=== PATIENT | male | born 1995 | race Caucasian/White ===

== ENCOUNTER 2021-09-01 22:24 | Emergency (ER) | payer MEDICAID, SELFPAY ==
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
[2021-09-01 22:27] VITALS: BP 132/70; PULSE 100; RESP 19; TEMP 36.6; O2SAT 99; BMI 33.8
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
[2021-09-02] MEDS: Ibuprofen 600 MG TABLET PO (00:48)
[2021-09-02 00:54] VITALS: RESP 20
--- NOTE | 2021-09-02 00:55 | PC.NURSE ---
pt a&o, no sob or chest pain. pt able to move extremely and has positive cms. splint given and review of discharge instructions. Pt verbalized understanding.
== END 2021-09-02 01:16 | disposition home or self-care (01) ==
PROVIDERS: Emergency Provider Emergency Medicine Emergency Medical Services
DX: S63.601A Unspecified sprain of right thumb, initial encounter (principal); S60.221A Contusion of right hand, initial encounter; Y04.2XXA Assault by strike against or bumped into by another person, initial encounter; Y93.9 Activity, unspecified; Y92.9 Unspecified place or not applicable; Y99.9 Unspecified external cause status
CPT/HCPCS: 29125; 73120; 73140; 99283; 99284

== ENCOUNTER 2021-09-03 21:12 | Emergency (ER) | payer MEDICAID, SELFPAY ==
[2021-09-03 21:33] VITALS: BP 120/72; PULSE 96; RESP 18; TEMP 36.6; O2SAT 96; BMI 32.8
--- NOTE | 2021-09-03 21:40 | PC.NURSE ---
From [facility] angela Bass, Staff member is Rocael as 1:1 Staff member coming on overnight: Rere. Staff building construction supervisor: Javi [phone]
[2021-09-03 21:59] LABS: MANUAL DIFF FLAG NO
[2021-09-03 22:04] LABS: Appearance Urine CLEAR; Basophils Absolute Auto 0.1 X10*3/uL (0.0-0.2); Basophils Percent Auto 0.8 % (0-2); Color Urine YELLOW; Eosinophils Absolute Auto 0.2 X10*3/uL (0.0-0.4); Glucose Urine UA NEG (NEG); Hematocrit 38.9 % (42.0-52.0); Hemoglobin 13.2 g/dl (14.0-18.0); Imm Gran Abs Auto 0.07 X10*3/uL (0.00-0.03); Imm Gran Pct Auto 0.9 % (0.0-0.4); Leukocyte Esterase Urine NEG (NEG); Lymphocytes Percent Auto 26.2 % (20-40); Mean Corpuscular HGB Conc 33.9 g/dl (31.0-36.0); Mean Corpuscular Hemoglobin 31.4 pg (27.0-33.0); Mean Corpuscular Volume 92.4 fL (80.0-98.0); Mean Platelet Volume 8.9 fL (9.4-12.4); Monocytes Absolute Auto 0.8 X10*3/uL (0.1-1.2); Monocytes Percent Auto 10.5 % (2-11); Neutrophils Absolute Auto 4.5 x10*3/uL (2.0-8.3); Neutrophils Percent Auto 59.6 % (45-73); Nitrite Urine NEG (NEG); Platelet Count 289 X10*3/uL (160-400); Red Blood Count 4.21 X10*6/uL (4.60-5.80); Red Cell Distribution Width 12.4 % (11.0-16.0); Specific Gravity - Urine 1.025 (1.005-1.025); Urine Blood NEG (NEG); Urine Ketones 5 MG/DL (NEG); Urine Protein NEG (NEG-TRACE); White Blood Count 7.5 X10*3/uL (4.8-10.8)
[2021-09-03 22:25] LABS: COVID-19 Test Negative (Negative); IDNOW Serial# 16C4AD1C; IDNOW Serial# 9DB6401D; Influenza A Negative (Negative); Influenza B2 Negative (Negative)
[2021-09-03 22:26] LABS: Alanine Aminotransferase 21 U/L (0-40); Albumin Level 4.1 g/dL (3.5-5.0); Alkaline Phosphatase 48 U/L (39-117); Anion Gap 13 (12-20); Aspartate Amino Transferase 20 U/L (5-37); Bilirubin Direct 0.2 mg/dL (0.0-0.5); Bilirubin Total 0.3 mg/dL (0.0-1.0); Blood Urea Nitrogen 22 mg/dL (9-16); Calcium 9.6 mg/dL (8.4-10.2); Carbon Dioxide 25 mmol/L (22-29); Chloride 106 mmol/L (96-108); Creatinine Clr Calc Pharmacy 150.4; Estimated Glomerular Filt Rate > 60; Glucose Random 91 mg/dL (60-115); Lipase 51 U/L (8-78); Potassium 4.8 mmol/L (3.3-5.1); Sodium 139 mmol/L (135-145)
[2021-09-04] VITALS: RESP 16
--- NOTE | 2021-09-04 00:05 | ED_ITS ---
HPI - Abdominal Pain General Chief Complaint: Abdominal Pain Stated Complaint: abd pain ,diarrhea Time Seen by Provider: 09/03/21 22:57 Source: patient Mode of arrival: ambulatory Limitations: no limitations History of Present Illness HPI narrative: Patient comes from a halfway complaining of 2 weeks of diffuse abdominal cramping, nausea vomiting and diarrhea. Patient states that he has had diarrhea twice. Feeling nauseous at this time. Seems that [facility], states he had a CT scan done and per patient, he was told that everything was normal. Patient denies any URI or UTI symptoms. Patient denies blood in the stool or black stool, patient states that the diarrhea has been green. Related Data Previous Rx's Medication Instructions Recorded ibuprofen 600 mg tablet 600 mg PO Q6H PRN #30 tab 09/02/21 loperamide 2 mg tablet 2 mg PO Q6H PRN #14 tab 09/04/21 (Anti-Diarrheal (loperamide)) ondansetron HCl 4 mg tablet 4 mg PO Q6H PRN #14 tab 09/04/21 Allergies Allergy/AdvReac Type Severity Reaction Status Date / Time acetaminophen [From Vicodin] Allergy Stomach Verified 09/01/21 22:33 Upset almond Allergy Unknown Verified 09/01/21 22:33 coconut Allergy Unknown Verified 09/01/21 22:33 hydrocodone [From Vicodin] Allergy Stomach Verified 09/01/21 22:33 Upset Review of Systems Review of Systems Constitutional : No Weight loss, No Fever, No Chills, No Night Sweats, No Fatigue, No Malaise ENT/Mouth : No Hearing loss, No Ear Pain, No Nasal Congestion, No Sinus Pain, No Hoarseness, No sore throat, No Rhinorrhea, No Swallowing Difficulty Eyes: No Eye Pain, No Swelling, No Redness, No Foreign Body, No Discharge, No Vision Changes Cardiovascular : No Chest Pain, No SOB, No Dyspnea on Exertion, No Orthopnea, No Edema, No Palpitations Respiratory : No Cough, No Sputum, No Wheezing, No Smoke Exposure, No Dyspnea Gastrointestinal : Complaining of nausea, vomiting, 2 episodes of diarrhea No Constipation, abdominal cramping, worse and suprapubic and left lower quadrant, No Hematochezia, No Melena Genitourinary : no irregular bleeding, No Dysuria, No Urinary Frequency, No Hematuria, No Urinary Incontinence, No Urgency, No Flank Pain, No Urinary Flow Changes, No Hesitancy Musculoskeletal : No joint pain, No Myalgias, No Joint Swelling Skin : No Skin Lesions, No rash Neuro : No Weakness, No Numbness, No Paresthesias, No Loss of Consciousness, No Dizziness, No Headache Psych : No Anxiety/Panic, No Depression, No SI/HI/AH/VH, No Social Issues, Heme/Lymph: No Bruising, No Bleeding,No Lymphadenopathy Endocrine : No Polyuria, No Polydipsia, No Temperature Intolerance [facility] Past Medical History Medical History Schizoaffective disorder Social History Social History Patient Tobacco Use Status: Never used Tobacco Advance Directives: No Advance Directives Information Provided: No Physical Exam ED Vital Signs: Vital Signs - 24 hr 09/03/21 21:33 Temperature 98 F Pulse Rate 96 Respiratory Rate 18 Blood Pressure 120/72 Pulse Oximetry 96 BMI result Body Mass Index 32.8 Const Other: Appearance: Alert. Oriented X3. No acute distress. Eyes: Pupils equal, round and reactive to light. Ecchymosis at least 3 to 4-day-old around the right eye, moves eyes with normal range of motion, no nerve entrapment suspected ENT: Pharynx normal. Neck: Normal inspection. Neck supple. No lymph nodes noted. No crepitus CVS: Normal heart rate and rhythm. Pulses normal. Normal S1 and S2 Respiratory: No respiratory distress. Breath sounds normal. No Wheezing. No rales Abdomen: Soft , seems to have discomfort on palpation in suprapubic and right lower quadrant. Skin: Skin warm and dry. Normal skin color. Normal skin turgor. Extremities: No lower extremity edema. No Lacerations. No Rash, patient's right arm is in a splint Neuro: Oriented X 3. No motor deficit. No sensory deficit. Moving all extremities. No slurred speech. CN 2 through 12 grossly intact Psych: calm, cooperative, normal affect Course Course Course Narrative: Patient's white blood cell count within normal limits, no electrolyte abnormalities. Urinalysis is clean. Patient refuses CT scan. Patient was given 1 dose of loperamide and Zofran in the emergency room. Otherwise patient feels well, ready for discharge. MDM - Abdominal Pain Lab Data Result diagrams: 09/03/21 21:51 09/03/21 21:51 Labs: Lab Results 09/03/21 09/03/21 09/03/21 Range/Units 21:51 21:51 21:51 WBC 7.5 (4.8-10.8) X10*3/uL RBC 4.21 L (4.60-5.80) X10*6/uL Hgb 13.2 L (14.0-18.0) g/dl Hct 38.9 L (42.0-52.0) % MCV 92.4 (80.0-98.0) fL MCH 31.4 (27.0-33.0) pg MCHC 33.9 (31.0-36.0) g/dl RDW 12.4 (11.0-16.0) % Plt Count 289 (160-400) X10*3/uL MPV 8.9 L (9.4-12.4) fL Immature Gran % (Auto) 0.9 H (0.0-0.4) % Neut % (Auto) 59.6 (45-73) % Lymph % (Auto) 26.2 (20-40) % [place] % (Auto) 10.5 (2-11) % Eos % (Auto) 2.0 (0-4) % Baso % (Auto) 0.8 (0-2) % Lymph # (Auto) 2.0 (1.2-4.9) X10*3/uL [place] # (Auto) 0.8 (0.1-1.2) X10*3/uL Eos # (Auto) 0.2 (0.0-0.4) X10*3/uL Baso # (Auto) 0.1 (0.0-0.2) X10*3/uL Abs Immat Gran (auto) 0.07 H (0.00-0.03) X10*3/uL Absolute Neuts (auto) 4.5 (2.0-8.3) x10*3/uL Absolute Nucleated RBC 0.000 (0.0-0.012) X10*3/uL Nucleated RBC % (auto) 0.0 (0.0-0.2) /100WBC Sodium (135-145) mmol/L Potassium (3.3-5.1) mmol/L Chloride (96-108) mmol/L Carbon Dioxide (22-29) mmol/L Anion Gap (12-20) BUN (9-16) mg/dL Creatinine (0.5-1.4) mg/dL Estim Creat Clear Calc Estimated GFR Random Glucose (60-115) mg/dL Calcium (8.4-10.2) mg/dL Total Bilirubin (0.0-1.0) mg/dL Direct Bilirubin (0.0-0.5) mg/dL AST (5-37) U/L ALT (0-40) U/L Alkaline Phosphatase (39-117) U/L Total Protein (6.5-8.0) g/dL Albumin (3.5-5.0) g/dL Lipase (8-78) U/L Urine Color Urine Appearance Urine pH (5.0-8.0) Ur Specific [place] (1.005-1.025) Urine Protein (NEG-TRACE) MG/DL Urine Glucose (UA) (NEG) MG/DL Urine Ketones (NEG) MG/DL Urine Blood (NEG) Urine Nitrite (NEG) Ur Leukocyte Esterase (NEG) COVID-19 (MIGUEL ANGEL) Negative (Negative) COVID-19 Clin Com See Note Influenza Type A (PENG) Negative (Negative) Influenza Type B (PENG) Negative (Negative) Influenza A & B Note See Note 09/03/21 09/03/21 Range/Units 21:51 21:51 WBC (4.8-10.8) X10*3/uL RBC (4.60-5.80) X10*6/uL Hgb (14.0-18.0) g/dl Hct (42.0-52.0) % MCV (80.0-98.0) fL MCH (27.0-33.0) pg MCHC (31.0-36.0) g/dl RDW (11.0-16.0) % Plt Count (160-400) X10*3/uL MPV (9.4-12.4) fL Immature Gran % (Auto) (0.0-0.4) % Neut % (Auto) (45-73) % Lymph % (Auto) (20-40) % [place] % (Auto) (2-11) % Eos % (Auto) (0-4) % Baso % (Auto) (0-2) % Lymph # (Auto) (1.2-4.9) X10*3/uL [place] # (Auto) (0.1-1.2) X10*3/uL Eos # (Auto) (0.0-0.4) X10*3/uL Baso # (Auto) (0.0-0.2) X10*3/uL Abs Immat Gran (auto) (0.00-0.03) X10*3/uL Absolute Neuts (auto) (2.0-8.3) x10*3/uL Absolute Nucleated RBC (0.0-0.012) X10*3/uL Nucleated RBC % (auto) (0.0-0.2) /100WBC Sodium 139 (135-145) mmol/L Potassium 4.8 (3.3-5.1) mmol/L Chloride 106 (96-108) mmol/L Carbon Dioxide 25 (22-29) mmol/L Anion Gap 13 (12-20) BUN 22 H (9-16) mg/dL Creatinine 0.84 (0.5-1.4) mg/dL Estim Creat Clear Calc 150.4 Estimated GFR > 60 Random Glucose 91 (60-115) mg/dL Calcium 9.6 (8.4-10.2) mg/dL Total Bilirubin 0.3 (0.0-1.0) mg/dL Direct Bilirubin 0.2 (0.0-0.5) mg/dL AST 20 (5-37) U/L ALT 21 (0-40) U/L Alkaline Phosphatase 48 (39-117) U/L Total Protein 7.0 (6.5-8.0) g/dL Albumin 4.1 (3.5-5.0) g/dL Lipase 51 (8-78) U/L Urine Color YELLOW Urine Appearance CLEAR Urine pH 6.0 (5.0-8.0) Ur Specific [place] 1.025 (1.005-1.025) Urine Protein NEG (NEG-TRACE) MG/DL Urine Glucose (UA) NEG (NEG) MG/DL Urine Ketones 5 (NEG) MG/DL Urine Blood NEG (NEG) Urine Nitrite NEG (NEG) Ur Leukocyte Esterase NEG (NEG) COVID-19 (MIGUEL ANGEL) (Negative) COVID-19 Clin Com Influenza Type A (PENG) (Negative) Influenza Type B (PENG) (Negative) Influenza A & B Note Discharge Plan Discharge Clinical Impression: Nausea vomiting and diarrhea Patient Disposition: Home, Self-Care Instructions: Acute Nausea and Vomiting (ED), Acute Diarrhea (ED), Abdominal Pain (ED) Additional Instructions: Please stay well hydrated. Drink fluids with electrolytes such as Gatorade, Pedialyte or Powerade. Please follow-up with your primary care physician tomorrow. If you have any worsening or new symptoms, please return to the emergency room or call 911 Prescriptions: New loperamide [Anti-Diarrheal (loperamide)] 2 mg tablet 2 mg PO Q6H PRN (Reason: loose stool) Qty: 14 0RF ondansetron HCl 4 mg tablet 4 mg PO Q6H PRN (Reason: nausea and vomiting) Qty: 14 0RF No Action ibuprofen 600 mg tablet 600 mg PO Q6H PRN (Reason: pain) Qty: 30 0RF
[2021-09-04] MEDS: Ondansetron ODT 4 MG TAB.RAPDIS TRANSLINGU (00:20)
[2021-09-04] MEDS: Loperamide HCl 2 MG CAPSULE 4 MG PO (00:20)
== END 2021-09-04 00:24 | disposition home or self-care (01) ==
PROVIDERS: Emergency Provider Emergency Medicine
DX: R11.2 Nausea with vomiting, unspecified (principal); R19.7 Diarrhea, unspecified; Z20.822 Contact with and (suspected) exposure to COVID-19; Z79.899 Other long term (current) drug therapy
CPT/HCPCS: 36415; 80053; 81003; 82248; 83690; 85025; 87502; 87635; 99283; 99284

== ENCOUNTER 2021-11-27 13:42 | Emergency (ER) | payer OTHER, SELFPAY ==
--- NOTE | ~2021-11-27 | XR_ITS ---
EXAMINATION: XR CHEST CLINICAL INFORMATION: Chest pain COMPARISON: None TECHNIQUE: Frontal view of the chest was obtained. FINDINGS: No significant abnormality is noted involving the heart, lungs, mediastinum, bony thorax or soft tissues. XR/XR chest 1V IMPRESSION: Unremarkable examination.
--- NOTE | 2021-11-27 14:01 | ECG_ITS ---
Test Reason : cp Blood Pressure : / mmHG Vent. Rate : 107 BPM Atrial Rate : 107 BPM P-R Int : 130 ms QRS Dur : 080 ms QT Int : 334 ms P-R-T Axes : 023 028 011 degrees QTc Int : 445 ms Sinus tachycardia Cannot rule out Anterior infarct , age undetermined Abnormal ECG No previous ECGs available Referred By: Generic ED Physician Electronically Signed By:MANUEL JUDD MD
[2021-11-27 14:28] VITALS: BP 134/80; PULSE 100; RESP 18; TEMP 36.6; O2SAT 96; BMI 38.5
[2021-11-27 14:48] LABS: MANUAL DIFF FLAG NO
[2021-11-27 14:49] LABS: Basophils Absolute Auto 0.1 X10*3/uL (0.0-0.2); Eosinophils Absolute Auto 0.2 X10*3/uL (0.0-0.4); Eosinophils Percent Auto 2.8 % (0-4); Hematocrit 41.8 % (42.0-52.0); Hemoglobin 14.7 g/dl (14.0-18.0); Imm Gran Abs Auto 0.04 X10*3/uL (0.00-0.03); Imm Gran Pct Auto 0.7 % (0.0-0.4); Lymphocytes Absolute Auto 2.1 X10*3/uL (1.2-4.9); Lymphocytes Percent Auto 35.3 % (20-40); Mean Corpuscular HGB Conc 35.2 g/dl (31.0-36.0); Mean Corpuscular Hemoglobin 31.2 pg (27.0-33.0); Mean Corpuscular Volume 88.7 fL (80.0-98.0); Mean Platelet Volume 9.3 fL (9.4-12.4); Monocytes Absolute Auto 0.6 X10*3/uL (0.1-1.2); Neutrophils Percent Auto 50.2 % (45-73); Platelet Count 290 X10*3/uL (160-400); Red Blood Count 4.71 X10*6/uL (4.60-5.80); Red Cell Distribution Width 11.5 % (11.0-16.0)
[2021-11-27 15:14] LABS: Anion Gap 14 (12-20); Blood Urea Nitrogen 14 mg/dL (9-16); Calcium 9.2 mg/dL (8.4-10.2); Carbon Dioxide 25 mmol/L (22-29); Chloride 106 mmol/L (96-108); Creatinine Clr Calc Pharmacy 163.6; Estimated Glomerular Filt Rate > 60; Glucose Random 80 mg/dL (60-115); Potassium 4.7 mmol/L (3.3-5.1); Sodium 140 mmol/L (135-145)
[2021-11-27 15:22] LABS: Troponin-I High Sensitivity < 3.5 ng/L (<3.5-35.0)
--- NOTE | 2021-11-27 16:25 | ED.CHESTPAIN ---
HPI - Chest Pain General Chief Complaint: Chest Pain Stated Complaint: chest pain, numb feet Time Seen by Provider: 11/27/21 15:47 Source: patient Mode of arrival: ambulatory Limitations: no limitations History of Present Illness HPI narrative: 26-year-old male presents to ED for chest pain for 2 months and also numbness/tingling of lower extremities for couple of weeks. patient denies any pleurisy, leg swelling, calf pain, fever, chills, slurred speech, recent long travel, headache, dizziness, loss of vision, pleurisy, recent trauma, paralysis of extremities, estrogen hormonal use, or shortness/chest pain on exertion. patient states chest pain described as feeling nervous and tingling in feet when these episode occur. patient denies any URI symptoms or covid symptoms Related Data Previous Rx's Medication Instructions Recorded ibuprofen 600 mg tablet 600 mg PO Q6H PRN pain #30 tabs 09/02/21 loperamide 2 mg tablet 2 mg PO Q6H PRN loose stool #14 09/04/21 (Anti-Diarrheal (loperamide)) tabs ondansetron HCl 4 mg tablet 4 mg PO Q6H PRN nausea and 09/04/21 vomiting #14 tabs Allergies Allergy/AdvReac Type Severity Reaction Status Date / Time acetaminophen [From Vicodin] Allergy Stomach Verified 09/01/21 22:33 Upset almond Allergy Unknown Verified 09/01/21 22:33 coconut Allergy Unknown Verified 09/01/21 22:33 hydrocodone [From Vicodin] Allergy Stomach Verified 09/01/21 22:33 Upset Review of Systems Review of Systems: atypical chest pain Yes all other systems are reviewed and are negative [facility]LY [facility] Past Medical History Medical History Schizoaffective disorder Social History Social History Patient Tobacco Use Status: Never used Tobacco Advance Directives: No Advance Directives Information Provided: No Physical Exam Vital Signs: Vital Signs: Last Vital Signs Temp 97.9 F 11/27/21 14:28 Pulse 100 11/27/21 14:28 Resp 18 11/27/21 14:28 BP 134/80 11/27/21 14:28 Pulse Ox 96 11/27/21 14:28 O2 Del Method 11/27/21 14:28 BMI result Body Mass Index 38.5 Const: General: cooperative, healthy appearing, comfortable, no acute distress, well developed, alert, awake and Physically active Orientation/consciousness: patient oriented x3 HEENT: Head: Yes normal to inspection, Yes No palpable skull fracture present, Yes normocephalic, Yes atraumatic and No abrasion Eyes: General: appearance normal, both eyes and all related structures Neck: Neck: Yes normal visual inspection, Yes full ROM, Yes no lymphadenopathy, Yes no meningeal signs, Yes trachea midline, Yes supple, No anterior neck swelling and No tender Chest: Chest palpation & inspection: normal inspection of the chest and normal palpation of entire chest wall Resp: Effort & Inspection: normal respiratory effort and able to speak in complete sentences Auscultation: clear to auscultation bilaterally Cardio: Jugular venous distension: no JVD Heart sounds: S1 normal heart sound present and S2 normal heart sound present GI: Inspection: Yes normal to inspection and No abdominal wall ecchymosis Palpation (GI): Soft to palpation, not firm, nontender, no guarding and not rigid : General: No CVA tenderness and Yes no CVA tenderness Back/Spine/Pelvis: Back: no CVA tenderness, No CVA tenderness and No back tenderness Skin: General skin exam: no rashes or lesions noted and elasticity normal Neuro: Other: Negative slurred speech. Negative facial droop. Negative pronator drift. All extremities equal strength 5+. [id number] rapid hand movement sac. Negative Romberg. Negative nystagmus. NIH 0 General: patient oriented x3, gait normal, tone normal and no meningeal signs Cranial nerves: Yes CN's II-XII intact bilaterally Extrem: Other: Lower extremities negative for any swelling, pitting edema, calf tenderness. Lower extremity motor/nerve/vascular is intact. Lower extremity deep acute reflexes intact. General: Yes normal to inspection and Yes full ROM Psych: Appearance: grossly normal, well kempt and not disheveled Course Course Course Narrative: Atypical chest pain. Reevaluation(s) Reevaluation #1: EKG negative STEMI. Chest x-ray normal. Troponin negative. Not suspecting PE. Patient denies any pleurisy, recent long travel, recent surgery, leg swelling, calf pain, coughing up blood, or syncope. Patient informed to follow-up primary care provider. Negative for any neuro deficits. No need for head CT. Time: 16:38 MDM - Chest Pain MDM Narrative Medical decision making narrative: Atypical chest pain Lab Data Result diagrams: 11/27/21 14:39 11/27/21 14:39 Labs: Lab Results 11/27/21 11/27/21 11/27/21 Range/Units 14:39 14:39 14:39 WBC 6.0 (4.8-10.8) X10*3/uL RBC 4.71 (4.60-5.80) X10*6/uL Hgb 14.7 (14.0-18.0) g/dl Hct 41.8 L (42.0-52.0) % MCV 88.7 (80.0-98.0) fL MCH 31.2 (27.0-33.0) pg MCHC 35.2 (31.0-36.0) g/dl RDW 11.5 (11.0-16.0) % Plt Count 290 (160-400) X10*3/uL MPV 9.3 L (9.4-12.4) fL Immature Gran % (Auto) 0.7 H (0.0-0.4) % Neut % (Auto) 50.2 (45-73) % Lymph % (Auto) 35.3 (20-40) % [place] % (Auto) 10.0 (2-11) % Eos % (Auto) 2.8 (0-4) % Baso % (Auto) 1.0 (0-2) % Lymph # (Auto) 2.1 (1.2-4.9) X10*3/uL [place] # (Auto) 0.6 (0.1-1.2) X10*3/uL Eos # (Auto) 0.2 (0.0-0.4) X10*3/uL Baso # (Auto) 0.1 (0.0-0.2) X10*3/uL Abs Immat Gran (auto) 0.04 H (0.00-0.03) X10*3/uL Absolute Neuts (auto) 3.0 (2.0-8.3) x10*3/uL Absolute Nucleated RBC 0.000 (0.0-0.012) X10*3/uL Nucleated RBC % (auto) 0.0 (0.0-0.2) /100WBC Sodium 140 (135-145) mmol/L Potassium 4.7 (3.3-5.1) mmol/L Chloride 106 (96-108) mmol/L Carbon Dioxide 25 (22-29) mmol/L Anion Gap 14 (12-20) BUN 14 (9-16) mg/dL Creatinine 0.83 (0.5-1.4) mg/dL Estim Creat Clear Calc 163.6 Estimated GFR > 60 Random Glucose 80 (60-115) mg/dL Calcium 9.2 (8.4-10.2) mg/dL Troponin I High Sens < 3.5 (<3.5-35.0) ng/L ECG Data ECG #1: Interpretation: Sinus bradycardia. Ventricular rate 107. Pr interval 130. QRS 80. QTC 445. Negative STEMI Discharge Plan Discharge Clinical Impression: Atypical chest pain, Paresthesia Patient Disposition: Home, Self-Care Instructions: Chest Pain (DC), Paresthesia (ED) Additional Instructions: Please follow-up with primary care provider. Call your primary care office tomorrow for early appointment. Return to the ED immediately for worsening chest pain, leg swelling, calf pain, chest pain on inspiration, shortness of breath on exertion, dizziness, weakness, facial droop, slurred speech, headache, dizziness, paralysis of extremities, loss of vision, coughing up blood, or any other concerning symptoms. Your EKG and blood work came back negative for heart attack. Your blood cell count came back normal. Your electrolytes and kidney function came back normal. Chest x-ray came back normal. Prescriptions: No Action loperamide [Anti-Diarrheal (loperamide)] 2 mg tablet 2 mg PO Q6H PRN (Reason: loose stool) Qty: 14 0RF ondansetron HCl 4 mg tablet 4 mg PO Q6H PRN (Reason: nausea and vomiting) Qty: 14 0RF ibuprofen 600 mg tablet 600 mg PO Q6H PRN (Reason: pain) Qty: 30 0RF Referrals: Bassem Mariscal PA-C [Primary Care Provider] - (Atypical chest pain. Paresthesia) Interventions: ED Discharge Assessment Last Done: 11/27/21 17:00 Discharge Date/Time: 11/27/21 17:01 Print Language: Fijian
== END 2021-11-27 17:01 | disposition home or self-care (01) ==
PROVIDERS: Emergency Provider Emergency Medicine; PCP Physician Assistant
DX: R07.89 Other chest pain (principal); R20.2 Paresthesia of skin; R20.0 Anesthesia of skin; Z79.899 Other long term (current) drug therapy
CPT/HCPCS: 36415; 71045; 80048; 84484; 85025; 93005; 99284

== ENCOUNTER 2022-01-21 09:55 | Outpatient (REF) | payer OTHER, SELFPAY ==
[2022-01-21 10:55] LABS: Hematocrit 43.8 % (42.0-52.0); Hemoglobin 14.9 g/dl (14.0-18.0); Mean Corpuscular Hemoglobin 29.9 pg (27.0-33.0); Mean Platelet Volume 9.5 fL (9.4-12.4); Platelet Count 295 X10*3/uL (160-400); Red Blood Count 4.98 X10*6/uL (4.60-5.80)
[2022-01-21 11:08] LABS: Alanine Aminotransferase 71 U/L (0-40); Albumin Level 4.2 g/dL (3.5-5.0); Alkaline Phosphatase 54 U/L (39-117); Anion Gap 16 (12-20); Aspartate Amino Transferase 37 U/L (5-37); Bilirubin Total 0.6 mg/dL (0.0-1.0); Blood Urea Nitrogen 14 mg/dL (9-16); Carbon Dioxide 25 mmol/L (22-29); Chloride 104 mmol/L (96-108); Estimated Glomerular Filt Rate > 60; Glucose Fasting 77 mg/dL (60-99); Potassium 4.8 mmol/L (3.3-5.1); Sodium 140 mmol/L (135-145); Total Protein 6.8 g/dL (6.5-8.0)
[2022-01-21 11:30] LABS: TSH reflex Free T4 2.92 uIU/mL (0.32-4.0)
== END 2022-01-21 09:56 | disposition home or self-care (01) ==
LOC: HO.LAB 09:55
PROVIDERS: PCP Physician Assistant; Visit Provider Physician Assistant
DX: Z13.1 Encounter for screening for diabetes mellitus (principal); E66.09 Other obesity due to excess calories; Z68.39 Body mass index [BMI] 39.0-39.9, adult
CPT/HCPCS: 36415; 80053; 84443; 85027

== ENCOUNTER 2022-03-06 10:16 | Outpatient (REF) | payer OTHER, SELFPAY ==
[2022-03-23 12:49] LABS: Rast Allergen SEE COMMENTS
== END 2022-03-06 10:17 | disposition home or self-care (01) ==
LOC: HO.LAB 10:16
PROVIDERS: PCP Physician Assistant; Visit Provider Physician Assistant
DX: T78.40XA Allergy, unspecified, initial encounter (principal)
CPT/HCPCS: 36415; 82785; 86003

== ENCOUNTER 2022-09-24 10:38 | Outpatient (REF) | payer OTHER, SELFPAY ==
[2022-09-24 13:27] LABS: Alanine Aminotransferase 46 U/L (0-40); Albumin Level 3.9 g/dL (3.5-5.0); Alkaline Phosphatase 57 U/L (39-117); Aspartate Amino Transferase 33 U/L (5-37); Bilirubin Direct 0.2 mg/dL (0.0-0.5); Bilirubin Total 0.6 mg/dL (0.0-1.0); Total Protein 6.7 g/dL (6.5-8.0)
== END 2022-09-24 10:39 | disposition home or self-care (01) ==
LOC: HO.LAB 10:38
PROVIDERS: PCP Physician Assistant; Visit Provider Physician Assistant
DX: B35.4 Tinea corporis (principal)
CPT/HCPCS: 36415; 80076

== ENCOUNTER 2022-09-25 09:46 | Outpatient (REF) | payer OTHER, SELFPAY ==
[2022-09-25 11:23] LABS: Hematocrit 47.4 % (42.0-52.0); Mean Corpuscular HGB Conc 33.8 g/dl (31.0-36.0); Mean Corpuscular Hemoglobin 30.3 pg (27.0-33.0); Mean Corpuscular Volume 89.8 fL (80.0-98.0); Mean Platelet Volume 9.5 fL (9.4-12.4); Platelet Count 242 X10*3/uL (160-400); Red Blood Count 5.28 X10*6/uL (4.60-5.80); Red Cell Distribution Width 12.4 % (11.0-16.0); White Blood Count 6.1 X10*3/uL (4.8-10.8)
[2022-09-25 12:00] LABS: Alanine Aminotransferase 52 U/L (0-40); Albumin Level 4.1 g/dL (3.5-5.0); Alkaline Phosphatase 57 U/L (39-117); Anion Gap 12 (12-20); Aspartate Amino Transferase 37 U/L (5-37); Bilirubin Total 0.8 mg/dL (0.0-1.0); Blood Urea Nitrogen 9 mg/dL (9-16); Calcium 9.5 mg/dL (8.4-10.2); Carbon Dioxide 26 mmol/L (22-29); Chloride 105 mmol/L (96-108); Estimated Glomerular Filt Rate > 60; Glucose Fasting 72 mg/dL (60-99); Potassium 4.9 mmol/L (3.3-5.1); Sodium 138 mmol/L (135-145)
== END 2022-09-25 09:47 | disposition home or self-care (01) ==
LOC: HO.LAB 09:46
PROVIDERS: PCP Physician Assistant; Visit Provider Physician Assistant
DX: Z13.1 Encounter for screening for diabetes mellitus (principal)
CPT/HCPCS: 36415; 80053; 85027

== ENCOUNTER → 2022-10-07 10:00 | Outpatient (BNVA) | payer OTHER, SELFPAY | PROVIDERS: PCP Physician Assistant; Visit Provider Dietitian, Registered | DX: E66.09 Other obesity due to excess calories (principal); Z68.38 Body mass index [BMI] 38.0-38.9, adult | CPT/HCPCS: 97802 ==

== ENCOUNTER 2022-10-21 20:16 | Emergency (ER) | payer OTHER, SELFPAY ==
[2022-10-21 20:32] VITALS: BP 144/90; PULSE 84; O2SAT 93; BMI 36.6
[2022-10-21 20:55] VITALS: BP 125/70; PULSE 78; RESP 20; TEMP 36.6; O2SAT 96
--- NOTE | 2022-10-21 21:15 | PC.NURSE ---
reports being up to date with tetanus shot-- last given 2 years ago.
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
--- NOTE | 2022-10-21 21:31 | MHC.EDTECH ---
Call out to [facility] for bls transport back to [place], [address]
== END 2022-10-21 22:01 | disposition home or self-care (01) ==
PROVIDERS: Emergency Provider Emergency Medicine; PCP Physician Assistant
DX: S01.112A Laceration without foreign body of left eyelid and periocular area, initial encounter (principal); Z79.899 Other long term (current) drug therapy; Y04.2XXA Assault by strike against or bumped into by another person, initial encounter; Y93.9 Activity, unspecified; Y92.9 Unspecified place or not applicable; Y99.9 Unspecified external cause status; F17.200 Nicotine dependence, unspecified, uncomplicated; Z71.6 Tobacco abuse counseling
CPT/HCPCS: 12011; 99283; 99284

== ENCOUNTER 2022-11-18 10:23 | Outpatient (AMB) | payer OTHER, SELFPAY ==
--- NOTE | 2022-11-18 10:33 | A.OFFPC_ITS ---
Vital Signs 11/18/22 10:34 Height 5 ft 7 in Weight 243 lb BMI 38.1 BP 118/70 Blood Pressure Location Lt brachial Position Sitting Intake Visit Reasons: F/U for stiches removal Intake Note: Patient here for a follow up on stitch removal Night Custodian Required: No Accompanied by: staff Allergies acetaminophen [From Vicodin] Allergy (Verified 11/18/22 10:52) Stomach Upset almond Allergy (Verified 11/18/22 10:52) Unknown coconut Allergy (Verified 11/18/22 10:52) Unknown hydrocodone [From Vicodin] Allergy (Verified 11/18/22 10:52) Stomach Upset Medication List - Last Reconciled 11/18/22 by Kasia Mustafa MD albuterol sulfate 90 mcg/actuation 2 puffs inhalation Q4H 30 days benztropine 1 mg PO BID cetirizine 10 mg PO DAILY 90 days diphenhydramine HCl (Banophen) mg PO divalproex 1,000 mg PO BID docusate sodium (Colace) 100 mg PO DAILY PRN 30 days epinephrine 0.3 mg (0.3 mL) IM ONCE PRN 30 days haloperidol 0 mg PO haloperidol 2.5 mg PO BID haloperidol decanoate mg IM ibuprofen 600 mg PO TID PRN 10 days lisdexamfetamine (Vyvanse) 50 mg PO DAILY loperamide (Anti-Diarrheal (loperamide)) 2 mg PO Q6H PRN omeprazole 40 mg PO DAILY 90 days ondansetron HCl 4 mg PO Q8H PRN 30 days propranolol 20 mg PO TID syringe with needle (BD Luer-Georgi Syringe) As directed trazodone 75 mg PO BEDTIME PRN Tobacco use date assessed: 07/22/22 Dental Screening Dental Screen Date: 11/18/22 Did you have a dental visit in the last 12 months?: Yes Did you have a dental problem in the last 6 months where you did not have access to dental care?: No Was dental information given to patient?: Patient has dentist HPI HPI Comments History of Present Illness Details This is a 27-year-old male with schizoaffective disorder, allergies and GERD that comes today accompanied by staff member complaining of thoracic spine pain that has been present for about 5 months. He denies any previous trauma. No associated symptoms. No aggravating or alleviating symptoms has been identified. I will order x-ray. His schizoaffective disorder is follow by Psychiatry. Allergies are well controlled with antihistamines as needed. GERD stable with omeprazole as needed. Denies any chest pain or shortness of breath. He had 2-3 sutures a 10/21/2022 at ER and had the removed 2 weeks later at urgent care. [facility] Medical History (Updated 11/18/22 @ 11:00 by Kasia Mustafa MD) ADHD (attention deficit hyperactivity disorder) PTSD (post-traumatic stress disorder) Schizoaffective disorder Surgical History H/O hand surgery Social History Housing: Other Alcohol intake: never Patient Tobacco Use Status: Current everyday Tobacco user Tobacco use type: Cigarette Cigarette Packs Per Day: 1 Cigarettes Per Day: 20 e-Cigarette/Vaping Use: Former Use Second Hand Smoke Exposure: Yes service: No Current occupational status: disabled Cognitive needs: No Hearing needs: No Vision needs: Yes (glasses) Questionnaire Thrive Questionnaire Date Thrive assessed: 07/22/22 WILLIAM-7 AMB Questionnaire WILLIAM-7 Date WILLIAM - 7 assessed: 07/22/22 Source: Developed by Drs. Jp Gonzalez, Mary Marroquin, Lj Parham and colleagues, with an educational nadine from [employer]. Review of Systems Const All systems reviewed & are unremarkable except as noted in HPI and below Eyes Reports no additional complaints, Denies change in vision and Denies other visual disturbances Card Denies chest pain at rest, Denies chest pain with activity, Denies edema, Denies irregular heart rhythm, Denies claudication, Denies dyspnea, Denies dyspnea on exertion, Denies orthopnea, Denies paroxysmal nocturnal dyspnea and Denies slow heart rate Resp Denies cough, Denies dyspnea and Denies dyspnea on exertion GI Denies abdominal pain, Denies change in bowel habits, Denies excessive flatus, Denies nausea and Denies vomiting Denies urinary hesitancy, Denies urinary incontinence and Denies urinary urgency Musc Denies abnormal gait, Denies atrophy, Denies deformity and Denies limited range of motion Skin/Breast Denies bleeding lesions, Denies changing lesions and Denies rash Neuro Denies abnormal gait and Denies lack of coordination Physical exam (Primary Care) Vital Signs: Last Vital Signs BP 118/70 11/18/22 10:34 BMI result Body Mass Index 38.1 Tobacco/Smoking Status: Tobacco use Status Tobacco use date assessed 07/22/22 11/18/22 10:43 Patient Tobacco Use Status Current everyday Tobacco 11/18/22 10:43 Tobacco use type Cigarette 11/18/22 10:43 e-Cigarette/Vaping Use Former Use 11/18/22 10:43 Thrive Assessment: Date of Thrive Assessment Date Thrive assessed 07/22/22 11/18/22 10:43 Eyes General: appearance normal, both eyes and all related structures Eyelids: Yes eyelids normal Conjunctivae: conjunctivae normal Neck Neck: Yes normal visual inspection and Yes supple Resp Effort & Inspection: normal respiratory effort Auscultation: clear to auscultation bilaterally Cardio Jugular venous distension: no JVD Rate: regular rate Rhythm: regular rhythm Heart sounds: S1 normal heart sound present and S2 normal heart sound present Extrem General: Yes full ROM Assessment and Plan Assessment & Plan (1) Thoracic spine pain: Code(s): M54.6 - Pain in thoracic spine Plan: X-ray ordered (2) GERD (gastroesophageal reflux disease): Code(s): K21.9 - Gastro-esophageal reflux disease without esophagitis Qualifiers: Esophagitis presence: without esophagitis Qualified Code(s): K21.9 - Gastro-esophageal reflux disease without esophagitis Plan: Continue PPIs (3) Schizoaffective disorder: Code(s): F25.9 - Schizoaffective disorder, unspecified Qualifiers: Schizoaffective disorder type: bipolar Qualified Code(s): F25.0 - Schizoaffective disorder, bipolar type Plan: Continue divalproex. Follow-up with psychiatry. (4) Allergies: Code(s): T78.40XA - Allergy, unspecified, initial encounter Qualifiers: Encounter type: subsequent encounter Qualified Code(s): T78.40XD - Allergy, unspecified, subsequent encounter Plan: Continue antihistamines as needed. Orders: Orders XR thoracic spine 2V Today M54.6 - Pain in thoracic spine Coding Level of Care Code Est Pt Level 4 (28835) Diagnoses Thoracic spine pain M54.6 GERD (gastroesophageal reflux disease) K21.9 Esophagitis presence: without esophagitis Schizoaffective disorder F25.0 Schizoaffective disorder type: bipolar Allergies T78.40XD Encounter type: subsequent encounter Time Spent (min) 21
[2022-11-18 10:34] VITALS: BP 118/70; BMI 38.1
== END 2022-11-18 11:01 | disposition home or self-care (01) ==
PROVIDERS: PCP Physician Assistant; Visit Provider Internal Medicine
DX: M54.6 Pain in thoracic spine (principal); K21.9 Gastro-esophageal reflux disease without esophagitis; F25.0 Schizoaffective disorder, bipolar type; T78.40XD Allergy, unspecified, subsequent encounter
CPT/HCPCS: 99214

== ENCOUNTER 2022-11-27 10:26 | Outpatient (REF) | payer OTHER, SELFPAY ==
--- NOTE | ~2022-11-27 | XR_ITS ---
EXAMINATION: XR THORACOLUMBAR SPINE CLINICAL INFORMATION: Pain in thoracic spine COMPARISON: None available. TECHNIQUE: AP, lateral and swimmer's views obtained of the thoracic spine. FINDINGS: The vertebral alignment is normal. No intrinsic bony abnormality. The disc heights are well maintained. The endplates and posterior elements are normal. No fracture or subluxation. The surrounding prevertebral soft tissues are unremarkable. XR/XR thoracic spine 2V IMPRESSION: No compression fractures or subluxations are identified. The disc spaces are preserved. No endplate changes are seen. The prevertebral soft tissues are normal.
== END 2022-11-27 10:27 | disposition home or self-care (01) ==
LOC: HO.XRAY 10:26
PROVIDERS: PCP Internal Medicine; Visit Provider Internal Medicine
DX: M54.6 Pain in thoracic spine (principal)
CPT/HCPCS: 72070

== ENCOUNTER 2022-12-11 15:10 | Outpatient (AMB) | payer OTHER, SELFPAY ==
[2022-12-11 15:14] VITALS: BP 110/80; PULSE 83; O2SAT 96; BMI 38.0
--- NOTE | 2022-12-11 15:14 | MHC.PC.OV ---
Vital Signs 12/11/22 15:14 Height 5 ft 7 in Weight 242 lb 8 oz BMI 38.0 BP 110/80 Blood Pressure Location Lt brachial Position Sitting Pulse 83 Pulse Source Pulse Oximeter Pulse Oximetry (%) 96 Oxygen Delivery Method Room Air Intake Visit Reasons: abdominal pain Allergies acetaminophen [From Vicodin] Allergy (Verified 12/11/22 15:25) Stomach Upset almond Allergy (Verified 12/11/22 15:25) Unknown coconut Allergy (Verified 12/11/22 15:25) Unknown hydrocodone [From Vicodin] Allergy (Verified 12/11/22 15:25) Stomach Upset Medication List - Last Reconciled 12/11/22 by Bassem Mariscal PA-C albuterol sulfate 90 mcg/actuation 2 puffs inhalation Q4H 30 days benztropine 1 mg PO BID cetirizine 10 mg PO DAILY 90 days diphenhydramine HCl (Banophen) mg PO divalproex 1,000 mg PO BID docusate sodium (Colace) 100 mg PO DAILY PRN 30 days epinephrine 0.3 mg (0.3 mL) IM ONCE PRN 30 days haloperidol decanoate mg IM ibuprofen 600 mg PO TID PRN 10 days lisdexamfetamine (Vyvanse) 50 mg PO DAILY loperamide (Anti-Diarrheal (loperamide)) 2 mg PO Q6H PRN omeprazole 40 mg PO DAILY 90 days ondansetron HCl 4 mg PO Q8H PRN 30 days propranolol 20 mg PO TID syringe with needle (BD Luer-Georgi Syringe) As directed trazodone 75 mg PO BEDTIME PRN Tobacco use date assessed: 12/11/22 Dental Screening Dental Screen Date: 12/11/22 Did you have a dental visit in the last 12 months?: Yes Did you have a dental problem in the last 6 months where you did not have access to dental care?: No Was dental information given to patient?: Patient has dentist HPI abdominal pain HPI Details Patient is a 27-year-old male here today for a problem visit. Patient's past medical history significant for schizoaffective disorder, obesity, tobacco dependency, generalized anxiety disorder.. Reports having stomach pain over the last several weeks since having COVID , reports he feels he needs to vomit after he eats. He does use antinausea medication and omeprazole 40 mg though have not been helping his stomach pain. Also reports having thoracic and lower back pain over the last weeks. Had gotten x-ray of his thoracic spine which was unremarkable. He is asking for script for a lumbar support brace. [facility] Medical History ADHD (attention deficit hyperactivity disorder) PTSD (post-traumatic stress disorder) Schizoaffective disorder Surgical History H/O hand surgery Social History Housing: Other Alcohol intake: never Patient Tobacco Use Status: Current everyday Tobacco user Tobacco use type: Cigarette Cigarette Packs Per Day: 1 Cigarettes Per Day: 20 e-Cigarette/Vaping Use: Former Use Second Hand Smoke Exposure: Yes service: No Current occupational status: disabled Cognitive needs: No Hearing needs: No Vision needs: Yes (glasses) Questionnaire PHQ-9 Over the last 2 weeks, how often have you been bothered by any of the following problems? 1. Little interest or pleasure in doing things: several days 2. Feeling down, depressed, or hopeless: several days 3. Trouble falling or staying asleep, or sleeping too much: several days 4. Feeling tired or having little energy: not at all 5. Poor appetite or overeating: several days 6. Feeling bad about yourself - or that you are a failure or have let yourself or your family down: several days 7. Trouble concentrating on things, such as reading the newspaper or watching television: not at all 8. Moving or speaking so slowly that other people could have noticed. Or the opposite - being so fidgety or restless that you have been moving around a lot more than usual: not at all 9. Thoughts that you would be better off or of hurting yourself in some way: not at all Total score: 5 Depression Screening Interpretation: Negative 63951 - PHQ-9 Billing: Yes Source: Developed by Drs. Jp Gonzalez, Mary Marroquin, Lj Parham and colleagues, with an educational nadine from [employer]. Thrive Questionnaire Date Thrive assessed: 07/22/22 I am a: Patient What is your living situation today?: I have a steady place to live Within the past 12 months, did the food you bought not last and you didn't have the money to get more?: Never true Within the past 12 months, did you worry whether your food would run out before you got money to buy more?: Never true Do you have trouble paying for medicines?: No Do you have trouble getting transportation to medical appointments?: No Do you have trouble paying your heating and electricity bill?: No Do you have trouble taking care of your child, family member or friend?: No Do you have trouble with day-to-day activities such as bathing, preparing meals, shopping, managing finances, etc.?: No Are you currently unemployed and looking for a job?: No Are you interested in more education?: No Currently or been in a relationship where the following occur: no concerns reported AUDIT C Alcohol Use Questionnaire (AUDIT-C) 1. How often do you have a drink containing alcohol?: Never 3. How often do you have six or more drinks on one occasion?: Never Total Score: 0 Score Reviewed/Action Taken: No WILLIAM-7 AMB Questionnaire WILLIAM-7 Date WILLIAM - 7 assessed: 07/22/22 Feeling nervous, anxious, or on edge: 0 = Not at all Not being able to stop or control worryin = Not at all Worrying too much about different things: 0 = Not at all Trouble relaxin = Not at all Being so restless that it is hard to sit still: 0 = Not at all Becoming easily annoyed or irritable: 0 = Not at all Feeling afraid as if something awful might happen: 0 = Not at all Total WILLIAM-7 score (0-4 normal; 5-9 mild; 10-14 moderate; 15-21 severe): 0 Source: Developed by Drs. Jp Gonzalez, Mary Marroquin, Lj Parham and colleagues, with an educational nadine from [employer]. WILLIAM-7 Assessment Billing WILLIAM-7 Assessment Tool: WILLIAM-7 Assessment 45303 Review of Systems Const Denies headache(s) Eyes Denies loss of vision ENT Denies vertigo, Denies dizziness, Denies headache(s) and Denies sore throat Card Denies chest pain, Denies leg edema and Denies lightheadedness Resp Denies cough, Denies hemoptysis and Denies wheezing GI Reports abdominal pain, Denies melena, Denies constipation, Denies diarrhea and Reports vomiting Denies dysuria, Denies urinary frequency and Denies urinary urgency Musc Denies arthralgias, Denies joint swelling, Denies numbness and Denies tingling Neuro Denies Abnormal speech present, Denies behavioral changes, Denies vertigo, Denies dizziness, Denies headache(s), Denies loss of vision, Denies memory loss, Denies numbness and Denies tingling Psych Denies anxiety, Denies behavioral changes, Denies depression, Denies memory loss and Denies panic attacks Neil/Lymph Denies easy bleeding and Denies easy bruising Aller/Immun Denies wheezing Physical exam (Primary Care) Vital Signs: Last Vital Signs Pulse 83 12/11/22 15:14 BP 110/80 12/11/22 15:14 Pulse Ox 96 12/11/22 15:14 Oxygen Delivery Method Room Air 12/11/22 15:14 BMI result Body Mass Index 38.0 Tobacco/Smoking Status: Tobacco use Status Tobacco use date assessed 12/11/22 12/11/22 15:21 Patient Tobacco Use Status Current everyday Tobacco 12/11/22 15:21 Tobacco use type Cigarette 12/11/22 15:21 e-Cigarette/Vaping Use Former Use 12/11/22 15:21 PHQ-9: PHQ-9 Score PHQ-9: Total score 5 12/11/22 15:26 Depression Screening Interpretation: Negative Thrive Assessment: Date of Thrive Assessment Date Thrive assessed 07/22/22 12/11/22 15:21 Currently or been in a relationship where the following occur: no concerns reported Const General: healthy appearing, no acute distress, alert and awake Nutritional Appearance: well nourished Orientation/consciousness: oriented to person, oriented to place and oriented to time HENMT Ears: TM's normal bilaterally General nose exam: Normal nasal mucous membranes and turbinates present Eyes Conjunctivae: conjunctivae normal Sclerae: sclerae normal Pupils: Equal, round and reactive pupils present Neck Neck: Yes no lymphadenopathy and Yes no JVD Thyroid: Thyroid normal Carotids: no bruits Resp Effort & Inspection: normal respiratory effort and not tachypneic Auscultation: no crackles, no rales, no rhonchi and no wheezes Cardio Rate: regular rate Rhythm: regular rhythm Heart sounds: no murmurs and normal S1 and S2 GI Palpation (GI): Soft to palpation, Tenderness to palpation present (GI), no hepatomegaly and no splenomegaly Auscultation: normal bowel sounds Skin General skin exam: no rashes or lesions noted and dry skin Neuro General: oriented to person, oriented to place and oriented to time Cranial nerves: Yes Equal, round and reactive pupils present Speech: No Abnormal speech present Gait exam (Neuro): Normal gait present Motor exam (neuro): no tremor noted Extrem Right upper extremity: full ROM Left upper extremity: full ROM Right lower extremity: full ROM; no edema Left lower extremity: full ROM; no edema Psych Mental Status: mental status grossly normal Speech and movement: Normal speech and movement present Affect: normal affect Attitude: cooperative Thought process: Normal thought process present Assessment and Plan Assessment & Plan (1) Lumbar spine pain: Code(s): M54.50 - Low back pain, unspecified Plan: He reports his back and thoracic spine abdomen and pain when sitting for long periods of time. X-ray of his thoracic spine was normal. Seems he has a stooped posture and advised on physical therapy though patient declines at this time. He is requesting a script for a lumbar support brace. (2) Thoracic spine pain: Code(s): M54.6 - Pain in thoracic spine (3) GERD (gastroesophageal reflux disease): Code(s): K21.9 - Gastro-esophageal reflux disease without esophagitis Qualifiers: Esophagitis presence: without esophagitis Qualified Code(s): K21.9 - Gastro-esophageal reflux disease without esophagitis Plan: Patient's signs symptoms consistent with GERD. Will supply patient with a week's worth of Carafate to use. Will hold off on omeprazole for 1 week while taking Carafate. Advised on smoking cessation weight reduction. Has on reducing gastric irritant foods. Medications: New sucralfate (Carafate) 10 mL PO BID 7 days 200 mL 0RF K21.9 - Gastro-esophageal reflux disease without esophagitis miscellaneous medical supply 1 ea miscellaneous DAILY 99 days 1 ea 0RF M54.50 - Low back pain, unspecified On Hold omeprazole Hold Comment: Doctor's Order 40 mg PO DAILY 90 days 90 caps 1RF K21.9 - Gastro-esophageal reflux disease without esophagitis Coding Level of Care Code Est Pt Level 3 (35415) Diagnoses Lumbar spine pain M54.50 Thoracic spine pain M54.6 GERD (gastroesophageal reflux disease) K21.9 Esophagitis presence: without esophagitis Additional Codes WILLIAM-7 Assessment Billing - WILLIAM-7 Assessment Tool: WILLIAM-7 Assessment 52751 ([id number])
== END 2022-12-11 15:39 | disposition home or self-care (01) ==
PROVIDERS: PCP Physician Assistant; Visit Provider Physician Assistant
DX: M54.50 Low back pain, unspecified (principal); M54.6 Pain in thoracic spine; K21.9 Gastro-esophageal reflux disease without esophagitis
CPT/HCPCS: 99213

== ENCOUNTER 2023-01-12 10:59 | Outpatient (AMB) | payer OTHER, SELFPAY ==
[2023-01-12 11:07] VITALS: BMI 37.7
--- NOTE | 2023-01-12 11:07 | MHC.AMNUTRGE ---
Intake VS Expanded 01/12/23 11:07 01/12/23 11:38 Height 5 ft 7 in 5 ft 7 in Weight 240 lb 15.444 oz 241 lb BMI 37.7 37.7 Intake Visit Reasons: Obesity Allergies acetaminophen [From Vicodin] Allergy (Verified 12/11/22 15:25) Stomach Upset almond Allergy (Verified 12/11/22 15:25) Unknown coconut Allergy (Verified 12/11/22 15:25) Unknown hydrocodone [From Vicodin] Allergy (Verified 12/11/22 15:25) Stomach Upset HPI Nutrition Presentation Details Pt presents for MNT for obesity. Pt was referred by Kandace Mariscal [facility]. Pt reports concerns regarding cost of foods that will be recommended ( referring to fruits/veg) makes own meals, staff helps with meals 8 -10 am B: omelet sausage and glass of milk whole milk dinner: shrimp , burger no fries , hashbrowns cookies /pastries/ (1 bag of sweet for the month) beverages seltzer water or soda Physical activity: sedentary- expresses interest in starting to participate in physical activity ETOH: denies SMoking: reports he is addicted to cigarettes ABV-Ifnsujm-Qv.Jeor Equation Height 5 ft 7 in Weight 241 lb Resting Metabolic Rate 2037.69 Calculated Activity Level Sedentary Calories Needed to Maintain Weight 2445.23 Diagnosis Nutrition problem #1 overweight/obesity As related to (etiology) #1 diagnosis As evidenced by (sign/symptom) #1 high BMI Monitoring/Goals Nutrition problem monitoring weight Nutrition goal/outcome wt loss 5lbs in 2 months Outcome progress verbalized understanding Most Recent Diabetes Results: Creatinine 0.79 mg/dL (0.5-1.4) 09/25/22 Blood Urea Nitrogen 9 mg/dL (9-16) 09/25/22 Sodium 138 mmol/L (135-145) 09/25/22 Potassium 4.9 mmol/L (3.3-5.1) 09/25/22 Chloride 105 mmol/L (96-108) 09/25/22 Carbon Dioxide 26 mmol/L (22-29) 09/25/22 Calcium 9.5 mg/dL (8.4-10.2) 09/25/22 AST 37 U/L (5-37) 09/25/22 ALT 52 U/L (0-40) H 09/25/22 Total Protein 7.0 g/dL (6.5-8.0) 09/25/22 Albumin 4.1 g/dL (3.5-5.0) 09/25/22 [facility] Medical History ADHD (attention deficit hyperactivity disorder) PTSD (post-traumatic stress disorder) Schizoaffective disorder Surgical History H/O hand surgery Social History Housing: Other Alcohol intake: never Patient Tobacco Use Status: Current everyday Tobacco user Tobacco use type: Cigarette Cigarette Packs Per Day: 1 Cigarettes Per Day: 20 e-Cigarette/Vaping Use: Former Use Second Hand Smoke Exposure: Yes service: No Current occupational status: disabled Cognitive needs: No Hearing needs: No Vision needs: Yes (glasses) Assessment & Plan Assessment & Plan (1) Obese: Code(s): E66.9 - Obesity, unspecified Qualifiers: Obesity type: due to excess calories Obesity classification: adult class 2 (BMI 35 - 39.9) Serious obesity comorbidity presence: without serious comorbidity Body mass index: BMI 39.0-39.9 Qualified Code(s): E66.09 - Other obesity due to excess calories; Z68.39 - Body mass index [BMI] 39.0-39.9, adult Plan: wt: 109 kg Est kcal needs as per MSJ: 2400 (40% carb, 30% protein/fat) Est fluid needs as per 25 ml/d: 2700 Est prot per day as per 1 g/kg bw: 109 working on weight Goal : 230 lbs Recommend fiber intake : 8-10 g per day and gradually increase to 25-28 g per day for women and 35-38 g for men or as tolerated Recommend sodium intake per day : less than 2000 mg Educated patient on: ( R = reviewed V = verbalizes understanding N/R = needs review N/A = not applicable Lower calorie food options Patient Instructions: switch to 1% milk have light microwavable popcorn , small bag with garlic added for flavor in place of bag of chips Walk for 30-40 minutes or as tolerated twice a week Coding Level of Care Code Nutr Indiv Intake (88658) Diagnoses Class 2 obesity due to excess calories without serious comorbidity with body mass index (BMI) of 39.0 to 39.9 in adult E66.09; Z68.39 Obesity type: due to excess calories Obesity classification: adult class 2 (BMI 35 - 39.9) Serious obesity comorbidity presence: without serious comorbidity Body mass index: BMI 39.0-39.9 Time Spent (min) 30
[2023-01-12 11:38] VITALS: BMI 37.7
== END 2023-01-12 11:29 | disposition home or self-care (01) ==
PROVIDERS: PCP Physician Assistant; Visit Provider Dietitian, Registered
DX: E66.09 Other obesity due to excess calories (principal); Z68.39 Body mass index [BMI] 39.0-39.9, adult

== ENCOUNTER → 2023-01-12 10:59 | Outpatient (BNVA) | payer OTHER, SELFPAY | PROVIDERS: PCP Physician Assistant; Visit Provider Dietitian, Registered | DX: E66.09 Other obesity due to excess calories (principal); Z68.37 Body mass index [BMI] 37.0-37.9, adult | CPT/HCPCS: 97802 ==

== ENCOUNTER 2023-01-22 09:40 | Outpatient (AMB) | payer OTHER, SELFPAY ==
[2023-01-22 09:43] VITALS: BP 124/68; PULSE 77; RESP 12; O2SAT 97; BMI 37.8
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
== END 2023-01-22 11:42 | disposition home or self-care (01) ==
PROVIDERS: PCP Internal Medicine; Visit Provider Nurse Practitioner Family
DX: M54.2 Cervicalgia (principal); F25.0 Schizoaffective disorder, bipolar type; F41.1 Generalized anxiety disorder
CPT/HCPCS: 99213

== ENCOUNTER 2023-03-30 10:10 | Outpatient (AMB) | payer OTHER, SELFPAY ==
[2023-03-30 10:21] VITALS: BP 108/76; PULSE 74; O2SAT 95; BMI 37.1
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
== END 2023-03-30 11:32 | disposition home or self-care (01) ==
PROVIDERS: Visit Provider Physician Assistant
DX: Z00.00 Encounter for general adult medical examination without abnormal findings (principal); H61.21 Impacted cerumen, right ear; M54.50 Low back pain, unspecified; Z23 Encounter for immunization; E66.09 Other obesity due to excess calories; Z68.39 Body mass index [BMI] 39.0-39.9, adult; F17.210 Nicotine dependence, cigarettes, uncomplicated; K21.9 Gastro-esophageal reflux disease without esophagitis; B35.4 Tinea corporis
CPT/HCPCS: 69210; 90471; 90677; 99395

== ENCOUNTER 2023-03-30 11:42 | Outpatient (REF) | payer OTHER, SELFPAY ==
[2023-03-30 13:09] LABS: Appearance Urine Clear; Color Urine Yellow; Glucose Urine UA Negative (Negative); Leukocyte Esterase Urine Negative (Negative); Nitrite Urine Negative (Negative); Urine Blood Negative (Negative); Urine Ketones Negative (Negative); Urine Protein Negative (Neg-Trace)
[2023-03-30 13:13] LABS: Alanine Aminotransferase 44 U/L (0-40); Alkaline Phosphatase 52 U/L (39-117); Anion Gap 13 (12-20); Aspartate Amino Transferase 27 U/L (5-37); Bilirubin Total 0.6 mg/dL (0.0-1.0); Blood Urea Nitrogen 4 mg/dL (9-16); Calcium 9.8 mg/dL (8.4-10.2); Carbon Dioxide 26 mmol/L (22-29); Chloride 107 mmol/L (96-108); Estimated Glomerular Filt Rate > 60; Glucose Fasting 84 mg/dL (60-99); Potassium 4.7 mmol/L (3.3-5.1); Sodium 141 mmol/L (135-145); Total Protein 6.9 g/dL (6.5-8.0)
[2023-03-30 13:28] LABS: HIV AB/AG Nonreactive (Nonreactive); HIV Num 1 0.04 S/CO (0.00-0.99); Syphilis Screen Nonreactive (Nonreactive)
[2023-03-31 15:22] LABS: CT PCR NOT DETECTED (Not Detect.); NG PCR NOT DETECTED (Not Detect.)
== END 2023-03-30 11:43 | disposition home or self-care (01) ==
LOC: HO.LAB 11:42
PROVIDERS: Visit Provider Physician Assistant
DX: Z13.1 Encounter for screening for diabetes mellitus (principal); Z11.4 Encounter for screening for human immunodeficiency virus [HIV]; Z11.3 Encounter for screening for infections with a predominantly sexual mode of transmission; R30.0 Dysuria; Z20.2 Contact with and (suspected) exposure to infections with a predominantly sexual mode of transmission
CPT/HCPCS: 0353U; 80053; 81003; 86780; 87389

== ENCOUNTER 2023-04-16 15:58 | Outpatient (AMB) | payer OTHER, SELFPAY ==
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
[2023-04-16 16:05] VITALS: BP 118/72; BMI 37.1
== END 2023-04-16 16:46 | disposition home or self-care (01) ==
PROVIDERS: PCP Physician Assistant; Visit Provider Internal Medicine
DX: T20.20XA Burn of second degree of head, face, and neck, unspecified site, initial encounter (principal); T21.21XA Burn of second degree of chest wall, initial encounter; T22.232A Burn of second degree of left upper arm, initial encounter; X98.2XXA Assault by hot fluids, initial encounter
CPT/HCPCS: 99214

== ENCOUNTER 2023-05-20 11:37 | Outpatient (AMB) | payer OTHER, SELFPAY ==
[2023-05-20 11:38] VITALS: BP 122/86; PULSE 83; O2SAT 97; BMI 37.0
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
== END 2023-05-20 12:28 | disposition home or self-care (01) ==
PROVIDERS: PCP Physician Assistant; Visit Provider Physician Assistant
DX: Z23 Encounter for immunization (principal); G44.309 Post-traumatic headache, unspecified, not intractable; S80.819D Abrasion, unspecified lower leg, subsequent encounter; T22.20XD Burn of second degree of shoulder and upper limb, except wrist and hand, unspecified site, subsequent encounter; F17.210 Nicotine dependence, cigarettes, uncomplicated
CPT/HCPCS: 90471; 90686; 99213

== ENCOUNTER 2023-05-22 11:05 | Outpatient (REF) | payer OTHER, SELFPAY ==
--- NOTE | ~2023-05-22 | XR_ITS ---
EXAMINATION: XR LUMBOSACRAL SPINE CLINICAL INFORMATION: Mechanical fall, lower back injury and pain COMPARISON: None available. TECHNIQUE: Three views of the lumbosacral spine. FINDINGS: The visualized lumbar vertebrae are intact with normal alignment. Prominent vertebral endplate indentation and possible decrease in vertebral body height are seen at L4 and L5 vertebral bodies. Intervertebral disc spaces are normal. XR/XR lumbar spine 2-3V IMPRESSION: Prominent vertebral endplate indentation and possible decrease in vertebral body height are seen at L4 and L5. This could represent normal variant or underlying osteopenia not expected for the patient's age. If there is clinical concern, further evaluation with MRI is recommended.
--- NOTE | ~2023-05-22 | XR_ITS ---
EXAMINATION: XR FOOT, RIGHT CLINICAL INFORMATION: Redundant, right foot injury and pain COMPARISON: None available. TECHNIQUE: AP, lateral, and oblique views of the right foot. FINDINGS: BONES: A small cortical step off is seen at distal cortex of right great toe proximal phalanx. JOINTS: Alignment of joints is normal. SOFT TISSUE: Soft tissue is normal. No radiopaque foreign body or abnormal air collection is seen. XR/XR foot RT 2V IMPRESSION: Findings are suggestive of small focal fracture at distal cortex of right great toe proximal phalanx.
== END 2023-05-22 11:06 | disposition home or self-care (01) ==
LOC: HO.XRAY 11:05
PROVIDERS: PCP Physician Assistant; Visit Provider Physician Assistant
DX: M54.50 Low back pain, unspecified (principal); M79.671 Pain in right foot
CPT/HCPCS: 72100; 73620

== ENCOUNTER 2023-06-26 09:49 | Outpatient (AMB) | payer OTHER, SELFPAY ==
[2023-06-26 10:56] VITALS: BP 126/72; PULSE 83; TEMP 36.3; O2SAT 96; BMI 36.3
--- NOTE | 2023-06-26 10:56 | MHC.OFFWIV ---
Intake Vital Signs 06/26/23 10:56 Height 5 ft 7 in Weight 232 lb BMI 36.3 BP 126/72 Blood Pressure Location Lt brachial Position Sitting Pulse 83 Pulse Source Pulse Oximeter Temp 97.3 F Temp Source Temporal Artery Scan Pulse Oximetry (%) 96 Oxygen Delivery Method Room Air Intake Visit Reasons: EST/difficulty urinating (lobby) Intake Note: pt kis here today difficulty urinating started 2 weeks ago Patient Tobacco Use Status: Current everyday Tobacco user Allergies acetaminophen [From Vicodin] Allergy (Verified 06/26/23 11:05) Stomach Upset almond Allergy (Verified 06/26/23 11:05) Unknown coconut Allergy (Verified 06/26/23 11:05) Unknown hydrocodone [From Vicodin] Allergy (Verified 06/26/23 11:05) Stomach Upset Do you need a note to return to daycare/school/sports/work: Yes HPI HPI Comments History of Present Illness Details 27 y/o male patient who presents to walk in clinic with c/o Urinary symptoms. Pt reports difficult urination, frequency and dysuria x 3 weeks. Pt lives in a group, mental disability. [facility] Medical History ADHD (attention deficit hyperactivity disorder) PTSD (post-traumatic stress disorder) Schizoaffective disorder Surgical History H/O hand surgery Social History Housing: Other Alcohol intake: never Patient Tobacco Use Status: Current everyday Tobacco user Tobacco use type: Cigarette and Smokeless Tobacco Cigarette Packs Per Day: 1 Cigarettes Per Day: 20 e-Cigarette/Vaping Use: Former Use Second Hand Smoke Exposure: Yes service: No Current occupational status: disabled Cognitive needs: No Hearing needs: No Vision needs: Yes (glasses) Review of Systems Const All systems reviewed & are unremarkable except as noted in HPI and below Physical Exam Vital Signs: Last Vital Signs Temp 97.3 F 06/26/23 10:56 Pulse 83 06/26/23 10:56 BP 126/72 06/26/23 10:56 Pulse Ox 96 06/26/23 10:56 Oxygen Delivery Method Room Air 06/26/23 10:56 BMI result Body Mass Index 36.3 Const General: no acute distress Nutritional Appearance: obese Orientation/consciousness: patient oriented x3 Limitations: behavioral limitations General: Yes CVA tenderness Back/Spine/Pelvis Back: CVA tenderness Neuro General: patient oriented x3 and gait normal Psych Attitude: cooperative Assessment & Plan Assessment & Plan (1) Cystitis: Code(s): N30.90 - Cystitis, unspecified without hematuria Plan: - Take medicine as directed. Orders: Orders UA CC w/rflx Micro + Cult Today N30.90 - Cystitis, unspecified without hematuria AMB Urinalysis Automated Today Z13.9 - Encounter for screening, unspecified Medications: New ciprofloxacin HCl 500 mg PO BID 7 days 14 tabs 0RF N30.90 - Cystitis, unspecified without hematuria Coding Level of Care Code Est Pt Level 3 (70579) Diagnoses Cystitis N30.90 Time Spent (min) 15
== END 2023-06-26 11:39 | disposition home or self-care (01) ==
PROVIDERS: PCP Physician Assistant; Visit Provider Nurse Practitioner Family
DX: N30.90 Cystitis, unspecified without hematuria (principal)
CPT/HCPCS: 99213

== ENCOUNTER 2023-06-26 11:41 | Outpatient (REF) | payer OTHER, SELFPAY ==
[2023-06-26 15:22] LABS: Appearance Urine Clear; Color Urine Dark Yellow; Glucose Urine UA Negative (Negative); Leukocyte Esterase Urine Negative (Negative); Nitrite Urine Positive (Negative); Specific Gravity - Urine >= 1.030 (1.005-1.025); UMIC TRIGGER UACC YES; Urine Blood Negative (Negative); Urine Ketones Trace mg/dL (Negative); Urine Protein Trace mg/dL (Neg-Trace)
[2023-06-26 15:44] LABS: Bacteria Urine None Seen (None Seen); Hyaline Casts Urine 0-2 /LPF (0-2); RBC Urine 0-2 /HPF (0-2); Squamous Epithelial Cell Urine 0-2 /HPF (0-2); UACC Culture Trigger YES; WBC Urine 0-5 /HPF (0-5)
== END 2023-06-26 11:42 | disposition home or self-care (01) ==
LOC: HO.LAB 11:41
PROVIDERS: Visit Provider Nurse Practitioner Family
DX: N30.90 Cystitis, unspecified without hematuria (principal)
CPT/HCPCS: 81001; 81003; 87086

== ENCOUNTER 2023-06-30 10:11 | Outpatient (AMB) | payer OTHER, SELFPAY ==
--- NOTE | 2023-06-30 10:15 | A.OFFPC_ITS ---
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 Accompanied by: Gladis-Case Making Machine Operator Allergies acetaminophen [From Vicodin] Allergy (Verified 06/30/23 10:29) Stomach Upset almond Allergy (Verified 06/30/23 10:29) Unknown coconut Allergy (Verified 06/30/23 10:29) Unknown hydrocodone [From Vicodin] Allergy (Verified 06/30/23 10:29) Stomach Upset Medication List - Last Reconciled 06/30/23 by Bassem Mariscal PA-C albuterol sulfate 90 mcg/actuation 2 puffs inhalation Q4H 30 days bacitracin 1 appl topical BID 15 days benztropine 1 mg PO BID buspirone 10 mg PO TID cetirizine 10 mg PO DAILY 90 days ciprofloxacin HCl 500 mg PO BID 7 days divalproex (Depakote) 1,000 mg PO BID docusate sodium 100 mg PO DAILY epinephrine 0.3 mg (0.3 mL) IM ONCE PRN 30 days haloperidol 7.5 mg twice a day haloperidol decanoate mg IM ibuprofen 600 mg PO TID PRN 10 days loperamide (Anti-Diarrheal (loperamide)) 2 mg PO Q6H PRN omeprazole 40 mg PO DAILY 90 days ondansetron HCl 4 mg PO Q8H PRN 30 days oxycodone 5 mg PO Q6H PRN propranolol 20 mg PO TID syringe with needle (BD Luer-Georgi Syringe) As directed Tobacco use date assessed: 05/20/23 Dental Screening Dental Screen Date: 06/30/23 Did you have a dental visit in the last 12 months?: Yes Did you have a dental problem in the last 6 months where you did not have access to dental care?: No Was dental information given to patient?: Patient has dentist HPI Follow smoking cessation HPI Details Patient's 27-year-old male here today for a follow-up visit Patient has a past medical history significant for generalized anxiety disorder, schizoaffective disorder, tobacco dependency and obesity. Recently seen at the walk-in clinic for acute dysuria, urinalysis showing positive leukocytes though negative culture. Was treated empirically with ciprofloxacin. Tobacco dependency: Unfortunately continues to smoke and has found it very difficult to quit smoking. Not interested in nicotine replacement therapy or medications to help quit smoking. schizoaffective disorder; patient continues to follow Psychiatry. He is on Haldol and Depakote. Does admit to smoking marijuana recently. Today on presentation seems somewhat lethargic, fatigued and slow to answer questions. [facility] Medical History Cervical spine pain Tinea corporis ADHD (attention deficit hyperactivity disorder) PTSD (post-traumatic stress disorder) Schizoaffective disorder Surgical History H/O hand surgery Social History Housing: Other Alcohol intake: never Patient Tobacco Use Status: Current everyday Tobacco user Tobacco use type: Cigarette and Smokeless Tobacco Cigarette Packs Per Day: 1 Cigarettes Per Day: 4 e-Cigarette/Vaping Use: Former Use Second Hand Smoke Exposure: Yes service: No Current occupational status: disabled Cognitive needs: No Hearing needs: No Vision needs: Yes (glasses) Questionnaire PHQ-9 Over the last 2 weeks, how often have you been bothered by any of the following problems? 1. Little interest or pleasure in doing things: nearly every day 2. Feeling down, depressed, or hopeless: nearly every day 3. Trouble falling or staying asleep, or sleeping too much: nearly every day 4. Feeling tired or having little energy: nearly every day 5. Poor appetite or overeating: nearly every day 6. Feeling bad about yourself - or that you are a failure or have let yourself or your family down: nearly every day 7. Trouble concentrating on things, such as reading the newspaper or watching television: nearly every day 8. Moving or speaking so slowly that other people could have noticed. Or the opposite - being so fidgety or restless that you have been moving around a lot more than usual: nearly every day 9. Thoughts that you would be better off or of hurting yourself in some way: nearly every day Total score: 27 Depression Screening Interpretation: Positive Depression Screening Follow-up: Existing condition and In treatment Depression Screening Done: Yes 86980 - PHQ-9 Billing: Yes Source: Developed by Drs. Jp Gonzalez, Mary Marroquin, Lj Parham and colleagues, with an educational nadine from [employer]. Thrive Questionnaire Date Thrive assessed: 06/30/23 I am a: Patient What is your living situation today?: I have a steady place to live Within the past 12 months, did the food you bought not last and you didn't have the money to get more?: Never true Within the past 12 months, did you worry whether your food would run out before you got money to buy more?: Never true Do you have trouble paying for medicines?: No Do you have trouble getting transportation to medical appointments?: No Do you have trouble paying your heating and electricity bill?: No Do you have trouble taking care of your child, family member or friend?: No Do you have trouble with day-to-day activities such as bathing, preparing meals, shopping, managing finances, etc.?: No Are you currently unemployed and looking for a job?: No Are you interested in more education?: No Please select the resources that you would like help with: None Currently or been in a relationship where the following occur: no concerns reported THRIVE Score: 0 AUDIT C Alcohol Use Questionnaire (AUDIT-C) 1. How often do you have a drink containing alcohol?: Never 3. How often do you have six or more drinks on one occasion?: Never Total Score: 0 Score Reviewed/Action Taken: No WILLIAM-7 AMB Questionnaire WILLIAM-7 Date WILLIAM - 7 assessed: 06/30/23 Feeling nervous, anxious, or on edge: 3 = Nearly every day Not being able to stop or control worryin = Nearly every day Worrying too much about different things: 3 = Nearly every day Trouble relaxin = Nearly every day Being so restless that it is hard to sit still: 3 = Nearly every day Becoming easily annoyed or irritable: 3 = Nearly every day Feeling afraid as if something awful might happen: 3 = Nearly every day Total WILLIAM-7 score (0-4 normal; 5-9 mild; 10-14 moderate; 15-21 severe): 21 Source: Developed by Mary Abbasi. Lopez, Lj Parham and colleagues, with an educational nadine from Jenn Ryk[employer]. WILLIAM-7 Assessment Billing WILLIAM-7 Assessment Tool: WILLIAM-7 Assessment 01513 Review of Systems Const Denies headache(s) Eyes Denies loss of vision ENT Denies vertigo, Denies dizziness, Denies headache(s) and Denies sore throat Card Denies chest pain, Denies leg edema and Denies lightheadedness Resp Denies cough, Denies hemoptysis and Denies wheezing GI Denies abdominal pain, Denies melena, Denies constipation, Denies diarrhea and Denies vomiting Denies dysuria, Denies urinary frequency and Denies urinary urgency Musc Denies arthralgias, Denies joint swelling, Denies numbness and Denies tingling Neuro Denies Abnormal speech present, Denies behavioral changes, Denies vertigo, Denies dizziness, Denies headache(s), Denies loss of vision, Denies memory loss, Denies numbness and Denies tingling Psych Denies anxiety, Denies behavioral changes, Denies depression, Denies memory loss and Denies panic attacks Neil/Lymph Denies easy bleeding and Denies easy bruising Aller/Immun Denies wheezing Physical exam (Primary Care) Vital Signs: Last Vital Signs Pulse 76 06/30/23 10:16 BP 102/62 06/30/23 10:16 Pulse Ox 97 06/30/23 10:16 Oxygen Delivery Method Room Air 06/30/23 10:16 BMI result Body Mass Index 36.0 BMI Assessment/Plan discussion: High Tobacco/Smoking Status: Tobacco use Status Tobacco use date assessed 05/20/23 06/30/23 10:22 Patient Tobacco Use Status Current everyday Tobacco 06/30/23 10:22 Tobacco use type Cigarette,Smokeless Tobacco 06/30/23 10:22 e-Cigarette/Vaping Use Former Use 06/30/23 10:22 Are you ready to quit: No Tobacco cessation counseling provided: Yes Relapse Prevention: discussed the importance of a supportive environment, discussed negative mood or depression after quitting, weight gain after smoking is common and discussed dietary, exercise and/or lifestyle changes Number of minutes spent counselin CPT code: 00761 - 4-10 Minutes PHQ-9: PHQ-9 Score PHQ-9: Total score 27 06/30/23 10:22 Depression Screening Interpretation: Positive Depression Screening Follow-up: Existing condition and In treatment Thrive Assessment: Date of Thrive Assessment Date Thrive assessed 06/30/23 06/30/23 10:22 Currently or been in a relationship where the following occur: no concerns reported Const General: healthy appearing, no acute distress, alert and awake Nutritional Appearance: well nourished Orientation/consciousness: oriented to person, oriented to place and oriented to time HENMT Ears: TM's normal bilaterally General nose exam: Normal nasal mucous membranes and turbinates present Eyes Conjunctivae: conjunctivae normal Sclerae: sclerae normal Pupils: Equal, round and reactive pupils present Neck Neck: Yes no lymphadenopathy and Yes no JVD Thyroid: Thyroid normal Carotids: no bruits Resp Effort & Inspection: normal respiratory effort and not tachypneic Auscultation: no crackles, no rales, no rhonchi and no wheezes Cardio Rate: regular rate Rhythm: regular rhythm Heart sounds: no murmurs and normal S1 and S2 GI Palpation (GI): Soft to palpation, nontender, no hepatomegaly and no splenomegaly Auscultation: normal bowel sounds Skin General skin exam: no rashes or lesions noted and dry skin Neuro General: oriented to person, oriented to place and oriented to time Cranial nerves: Yes Equal, round and reactive pupils present Speech: No Abnormal speech present Gait exam (Neuro): Normal gait present Motor exam (neuro): no tremor noted Extrem Right upper extremity: full ROM Left upper extremity: full ROM Right lower extremity: full ROM; no edema Left lower extremity: full ROM; no edema Psych Mental Status: mental status grossly normal Speech and movement: Slowed speech present (Psych) Affect: No normal affect Attitude: cooperative Thought process: Normal thought process present Assessment and Plan Assessment & Plan (1) Tobacco dependence: Code(s): F17.200 - Nicotine dependence, unspecified, uncomplicated Plan: Patient does understand he needs to quit smoking. Offered nicotine patches and her medication though he declines at this time. He does use smokeless tobacco. (2) Obese: Code(s): E66.9 - Obesity, unspecified Qualifiers: Body mass index: BMI 39.0-39.9 Obesity classification: adult class 2 (BMI 35 - 39.9) Obesity type: due to excess calories Serious obesity comorbidity presence: without serious comorbidity Qualified Code(s): E66.09 - Other obesity due to excess calories; Z68.39 - Body mass index [BMI] 39.0-39.9, adult Plan: Patient continues with a BMI above 30. Has had difficult time losing weight. He does understand he needs to be more physically active and adapt to better eating habits to reduce his weight. (3) Schizoaffective disorder: Code(s): F25.9 - Schizoaffective disorder, unspecified Qualifiers: Schizoaffective disorder type: bipolar Qualified Code(s): F25.0 - Schizoaffective disorder, bipolar type Plan: Patient continues to see Psychiatry. Continues on Haldol and divalproex. He does mention smoking marijuana last night. He does seem somewhat spacey and slow to answer questions today which could be a side effect of combination mental med health in marijuana use. Orders: Orders Basic Metabolic Panel Today F25.0 - Schizoaffective disorder, bipolar type Haloperidol Today F25.0 - Schizoaffective disorder, bipolar type Liver Panel Today F25.0 - Schizoaffective disorder, bipolar type Comprehensive Trinity. Panel Fast Today Z00.00 - Encounter for general adult medical examination without abnormal findings Complete Blood Count no Diff Today F25.0 - Schizoaffective disorder, bipolar type UA CC w/rflx Micro + Cult Today F25.0 - Schizoaffective disorder, bipolar type, R30.0 - Dysuria Drug Screen Urine Today F25.0 - Schizoaffective disorder, bipolar type Medications: Refilled cetirizine 10 mg PO DAILY 90 days 90 tabs 2RF T78.40XA - Allergy, unspecified, initial encounter omeprazole 40 mg PO DAILY 90 days 90 caps 1RF K21.9 - Gastro-esophageal reflux disease without esophagitis ondansetron HCl 4 mg PO Q8H 30 days PRN 90 tabs 1RF nausea and vomiting Z13.1 - Encounter for screening for diabetes mellitus Coding Level of Care Code Est Pt Level 4 (54940) Diagnoses Tobacco dependence F17.200 Class 2 obesity due to excess calories without serious comorbidity with body mass index (BMI) of 39.0 to 39.9 in adult E66.09; Z68.39 Body mass index: BMI 39.0-39.9 Obesity classification: adult class 2 (BMI 35 - 39.9) Obesity type: due to excess calories Serious obesity comorbidity presence: without serious comorbidity Schizoaffective disorder, bipolar type F25.0 Schizoaffective disorder type: bipolar Additional Codes WILLIAM-7 Assessment Billing - WILLIAM-7 Assessment Tool: WILLIAM-7 Assessment 57150 ([id number]) Vital Signs *Quality* - CPT code: 65047 - 4-10 Minutes ([id number])
[2023-06-30 10:16] VITALS: BP 102/62; PULSE 76; O2SAT 97; BMI 36.0
== END 2023-06-30 10:41 | disposition home or self-care (01) ==
PROVIDERS: PCP Physician Assistant; Visit Provider Physician Assistant
DX: F25.0 Schizoaffective disorder, bipolar type (principal); F17.210 Nicotine dependence, cigarettes, uncomplicated; E66.09 Other obesity due to excess calories; Z68.39 Body mass index [BMI] 39.0-39.9, adult
CPT/HCPCS: 99214

== ENCOUNTER 2023-06-30 10:45 | Outpatient (REF) | payer OTHER, SELFPAY ==
[2023-06-30 11:57] LABS: Appearance Urine Clear; Color Urine Dark Yellow; Glucose Urine UA Negative (Negative); Leukocyte Esterase Urine Negative (Negative); Nitrite Urine Negative (Negative); PH 6.5 (5.0-9.0); Urine Blood Negative (Negative); Urine Ketones Negative (Negative); Urine Protein Negative (Neg-Trace)
[2023-06-30 11:58] LABS: Hematocrit 44.7 % (42.0-52.0); Hemoglobin 15.4 g/dl (14.0-18.0); Mean Corpuscular HGB Conc 34.5 g/dl (31.0-36.0); Mean Corpuscular Hemoglobin 31.3 pg (27.0-33.0); Mean Corpuscular Volume 90.9 fL (80.0-98.0); Mean Platelet Volume 9.5 fL (9.4-12.4); Platelet Count 182 X10*3/uL (160-400); Red Blood Count 4.92 X10*6/uL (4.60-5.80); Red Cell Distribution Width 12.3 % (11.0-16.0); White Blood Count 5.5 X10*3/uL (4.8-10.8)
[2023-06-30 12:05] LABS: Amphetamine Screen Urine POSITIVE (Not Detect); Barbiturates, Urine Not Detected (Not Detect); Benzodiazepines Screen Urine Not Detected (Not Detect); Cannabinoid Screen Urine Not Detected (Not Detect); Cocaine Screen Urine Not Detected (Not Detect); Fentanyl, urine POSITIVE (Not Detect); Opiate Screen Urine Not Detected (Not Detect); Phencyclidine Screen Urine Not Detected (Not Detect)
[2023-06-30 12:32] LABS: Alanine Aminotransferase 60 U/L (0-40); Albumin Level 3.9 g/dL (3.5-5.0); Alkaline Phosphatase 53 U/L (39-117); Anion Gap 11 (12-20); Aspartate Amino Transferase 40 U/L (5-37); Bilirubin Direct 0.3 mg/dL (0.0-0.5); Bilirubin Total 0.5 mg/dL (0.0-1.0); Blood Urea Nitrogen 8 mg/dL (9-16); Calcium 9.5 mg/dL (8.4-10.2); Carbon Dioxide 29 mmol/L (22-29); Chloride 104 mmol/L (96-108); Estimated Glomerular Filt Rate > 60; Glucose Fasting 71 mg/dL (60-99); Glucose Random 71 mg/dL (60-115); Potassium 4.8 mmol/L (3.3-5.1); Sodium 139 mmol/L (135-145)
[2023-07-05 15:18] LABS: Haloperidol 28 ng/mL (5-15)
== END 2023-06-30 10:46 | disposition home or self-care (01) ==
LOC: HO.LAB 10:45
PROVIDERS: PCP Physician Assistant; Visit Provider Physician Assistant
DX: Z00.00 Encounter for general adult medical examination without abnormal findings (principal); F25.0 Schizoaffective disorder, bipolar type; R30.0 Dysuria; Z79.899 Other long term (current) drug therapy
CPT/HCPCS: 80048; 80053; 80076; 80173; 80307; 81003; 82248; 85027

== ENCOUNTER 2023-07-22 09:42 | Outpatient (AMB) | payer OTHER, SELFPAY ==
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
[2023-07-22 09:51] VITALS: BP 118/78; PULSE 97; RESP 17; O2SAT 97; BMI 36.0
== END 2023-07-22 10:11 | disposition home or self-care (01) ==
PROVIDERS: PCP Physician Assistant; Visit Provider Physician Assistant
DX: R30.0 Dysuria (principal)
CPT/HCPCS: 81003; 99214

== ENCOUNTER 2023-07-22 18:33 | Outpatient (REF) | payer OTHER, SELFPAY ==
[2023-07-22 18:54] LABS: Amphetamine Screen Urine POSITIVE (Not Detect); Barbiturates, Urine Not Detected (Not Detect); Benzodiazepines Screen Urine Not Detected (Not Detect); Cannabinoid Screen Urine Not Detected (Not Detect); Cocaine Screen Urine Not Detected (Not Detect); Fentanyl, urine Not Detected (Not Detect); Opiate Screen Urine Not Detected (Not Detect); Phencyclidine Screen Urine Not Detected (Not Detect)
== END 2023-07-22 18:34 | disposition home or self-care (01) ==
LOC: HO.LNP 18:33
PROVIDERS: Visit Provider Physician Assistant
DX: R30.0 Dysuria (principal); R41.0 Disorientation, unspecified
CPT/HCPCS: 80307; 87086

== ENCOUNTER 2023-07-23 09:21 | Outpatient (REF) | payer OTHER, SELFPAY ==
[2023-07-23 11:33] LABS: Anion Gap 11 (12-20); Blood Urea Nitrogen 6 mg/dL (9-16); Calcium 8.5 mg/dL (8.4-10.2); Carbon Dioxide 27 mmol/L (22-29); Chloride 104 mmol/L (96-108); Estimated Glomerular Filt Rate > 60; Glucose Random 118 mg/dL (60-115); Potassium 4.2 mmol/L (3.3-5.1); Sodium 138 mmol/L (135-145)
[2023-07-24 04:01] LABS: Syphilis Screen Nonreactive (Nonreactive)
[2023-07-24 04:15] LABS: HIV AB/AG Nonreactive (Nonreactive); HIV Num 1 0.04 S/CO (0.00-0.99)
== END 2023-07-23 09:22 | disposition home or self-care (01) ==
LOC: HO.LAB 09:21
PROVIDERS: PCP Physician Assistant; Visit Provider Physician Assistant
DX: Z11.4 Encounter for screening for human immunodeficiency virus [HIV] (principal); G44.309 Post-traumatic headache, unspecified, not intractable; R30.0 Dysuria
CPT/HCPCS: 80048; 86780; 87389

== ENCOUNTER 2023-08-14 14:19 | Outpatient (REF) | payer OTHER, SELFPAY ==
--- NOTE | ~2023-08-14 | CT_ITS ---
EXAMINATION: CT head/brain wo IV con CLINICAL INFORMATION: Reason for Exam G44.309 - Post-traumatic headache, unspecified, not intractable COMPARISON: Only the maxillofacial CT from 01/15/2020 is available at time of dictation TECHNIQUE: Contiguous axial imaging was performed from the skull base to vertex without intravenous contrast. Sagittal and coronal reformatted images were obtained. This CT examination was performed using dose optimization techniques as appropriate, variously including the following: * Automated exposure control * Adjustment of mA and/or kV according to patient size (this includes techniques or standardized protocols for targeted exams where dose is matched to indication/reason for exam; i.e. extremities or head) Use of iterative reconstruction technique DLP: 801.12 mGy-cm mGy-cm FINDINGS: There is no evidence of acute intracranial hemorrhage. No mass-effect or ventricular shift is noted. No acute, territorial loss of alston-white differentiation. Mild generalized cerebral volume loss which is greater than expected for the patient's age. No depressed calvarial fracture. Visualized paranasal sinuses are well-aerated. Soft tissue in the right external auditory canal, likely cerumen. The mastoid air cells are clear. CT/CT head/brain wo IV con IMPRESSION: No acute intracranial hemorrhage, mass effect, or midline shift. Mild generalized cerebral volume loss which is greater than expected for the patient's age.
== END 2023-08-14 14:20 | disposition home or self-care (01) ==
LOC: HO.CT 14:19
PROVIDERS: PCP Physician Assistant; Visit Provider Physician Assistant
DX: G44.309 Post-traumatic headache, unspecified, not intractable (principal); R41.0 Disorientation, unspecified
CPT/HCPCS: 70450

== ENCOUNTER 2023-09-30 10:02 | Outpatient (AMB) | payer OTHER, SELFPAY ==
--- NOTE | 2023-09-30 10:04 | A.OFFPC_ITS ---
Vital Signs 09/30/23 10:05 Height 5 ft 7 in Weight 238 lb 6 oz BMI 37.3 BP 128/82 Blood Pressure Location Lt brachial Position Sitting Pulse 83 Pulse Source Pulse Oximeter Pulse Oximetry (%) 97 Oxygen Delivery Method Room Air Intake Visit Reasons: 3mth f/u Cotton Converter Required: No Accompanied by: leadership program internship - geetha Allergies acetaminophen [From Vicodin] Allergy (Verified 09/30/23 10:24) Stomach Upset almond Allergy (Verified 09/30/23 10:24) Unknown coconut Allergy (Verified 09/30/23 10:24) Unknown hydrocodone [From Vicodin] Allergy (Verified 09/30/23 10:24) Stomach Upset Medication List - Last Reconciled 09/30/23 by Bassem Mariscal PA-C albuterol sulfate 90 mcg/actuation 2 puffs inhalation Q4H 30 days bacitracin 1 appl topical Q12H 15 days benztropine 1 mg PO BID buspirone 10 mg PO TID cetirizine 10 mg PO DAILY 90 days divalproex (Depakote) 1,000 mg PO BID docusate sodium 100 mg PO DAILY epinephrine 0.3 mg (0.3 mL) IM ONCE PRN 30 days haloperidol 7.5 mg twice a day ibuprofen 600 mg PO TID PRN 10 days lisdexamfetamine (Vyvanse) 50 mg PO QAM loperamide (Anti-Diarrheal (loperamide)) 2 mg PO Q6H PRN omeprazole 40 mg PO DAILY 90 days ondansetron HCl 4 mg PO Q8H PRN 30 days propranolol 20 mg PO TID syringe with needle (BD Luer-Georgi Syringe) As directed trazodone 150 mg PO BEDTIME Tobacco use date assessed: 05/20/23 Dental Screening Dental Screen Date: 06/30/23 HPI 3mth f/u HPI Details Patient's 27-year-old male here today for a follow-up visit. Presents today with a half-way associates. Patient has a past medical history significant for generalized anxiety disorder, schizoaffective disorder, tobacco dependency and obesity. They inform me he plans on moving to a new half-way in [facility] Former smoker: He reports he has quit smoking on his own over the last 3 weeks. .. schizoaffective disorder; patient continues to follow Psychiatry. He is on Haldol and Depakote. Does admit to smoking marijuana recently. Laboratory Tests 11/27/21 01/21/22 09/25/22 14:39 10:06 09:57 RBC 5.28 Hgb 14.7 14.9 Creatinine 0.79 ALT 52 H Troponin I High Se ns < 3.5 Ur Amphetamines Sc reen 07/22/23 09:30 RBC Hgb Creatinine ALT Troponin I High Se ns Ur Amphetamines Sc reen POSITIVE H PFSH Medical History Cervical spine pain Tinea corporis ADHD (attention deficit hyperactivity disorder) PTSD (post-traumatic stress disorder) Schizoaffective disorder Surgical History H/O hand surgery Social History Housing: Other Alcohol intake: never Patient Tobacco Use Status: Current everyday Tobacco user Tobacco use type: Cigarette and Smokeless Tobacco Cigarette Packs Per Day: 1 Cigarettes Per Day: 4 e-Cigarette/Vaping Use: Former Use Second Hand Smoke Exposure: Yes service: No Current occupational status: disabled Cognitive needs: No Hearing needs: No Vision needs: Yes (glasses) Questionnaire Thrive Questionnaire Date Thrive assessed: 06/30/23 WILLIAM-7 AMB Questionnaire WILLIAM-7 Date WILLIAM - 7 assessed: 06/30/23 Source: Developed by Drs. Jp Gonzalez, Mary Marroquin, Lj Parham and colleagues, with an educational nadine from [employer]. Review of Systems Const Denies headache(s) Eyes Denies loss of vision ENT Denies vertigo, Denies dizziness, Denies headache(s) and Denies sore throat Card Denies chest pain, Denies leg edema and Denies lightheadedness Resp Denies cough, Denies hemoptysis and Denies wheezing GI Denies abdominal pain, Denies melena, Denies constipation, Denies diarrhea and Denies vomiting Denies dysuria, Denies urinary frequency and Denies urinary urgency Musc Denies arthralgias, Denies joint swelling, Denies numbness and Denies tingling Neuro Denies Abnormal speech present, Denies behavioral changes, Denies vertigo, Denies dizziness, Denies headache(s), Denies loss of vision, Denies memory loss, Denies numbness and Denies tingling Psych Denies anxiety, Denies behavioral changes, Denies depression, Denies memory loss and Denies panic attacks Neil/Lymph Denies easy bleeding and Denies easy bruising Aller/Immun Denies wheezing Physical exam (Primary Care) Vital Signs: Last Vital Signs Pulse 83 09/30/23 10:05 BP 128/82 09/30/23 10:05 Pulse Ox 97 09/30/23 10:05 Oxygen Delivery Method Room Air 09/30/23 10:05 BMI result Body Mass Index 37.3 Tobacco/Smoking Status: Tobacco use Status Tobacco use date assessed 05/20/23 09/30/23 10:12 Patient Tobacco Use Status Current everyday Tobacco 09/30/23 10:12 Tobacco use type Cigarette,Smokeless Tobacco 09/30/23 10:12 e-Cigarette/Vaping Use Former Use 09/30/23 10:12 Thrive Assessment: Date of Thrive Assessment Date Thrive assessed 06/30/23 09/30/23 10:12 Const General: healthy appearing, no acute distress, alert and awake Nutritional Appearance: well nourished Orientation/consciousness: oriented to person, oriented to place and oriented to time HENMT Ears: TM's normal bilaterally General nose exam: Normal nasal mucous membranes and turbinates present Eyes Conjunctivae: conjunctivae normal Sclerae: sclerae normal Pupils: Equal, round and reactive pupils present Neck Neck: Yes no lymphadenopathy and Yes no JVD Thyroid: Thyroid normal Carotids: no bruits Resp Effort & Inspection: normal respiratory effort and not tachypneic Auscultation: no crackles, no rales, no rhonchi and no wheezes Cardio Rate: regular rate Rhythm: regular rhythm Heart sounds: no murmurs and normal S1 and S2 GI Palpation (GI): Soft to palpation, nontender, no hepatomegaly and no splenomegaly Auscultation: normal bowel sounds Skin General skin exam: no rashes or lesions noted and dry skin Neuro General: oriented to person, oriented to place and oriented to time Cranial nerves: Yes Equal, round and reactive pupils present Speech: No Abnormal speech present Gait exam (Neuro): Normal gait present Motor exam (neuro): no tremor noted Extrem Right upper extremity: full ROM Left upper extremity: full ROM Right lower extremity: full ROM; no edema Left lower extremity: full ROM; no edema Psych Mental Status: mental status grossly normal Speech and movement: Normal speech and movement present Affect: normal affect Attitude: cooperative Thought process: Normal thought process present Assessment and Plan Assessment & Plan (1) Schizoaffective disorder: Code(s): F25.9 - Schizoaffective disorder, unspecified Qualifiers: Schizoaffective disorder type: bipolar Qualified Code(s): F25.0 - Schizoaffective disorder, bipolar type Plan: Patient continues to see Psychiatry. Continues on Haldol and divalproex. At this time appears his mental health is stable. (2) Obese: Code(s): E66.9 - Obesity, unspecified Qualifiers: Body mass index: BMI 39.0-39.9 Obesity classification: adult class 2 (BMI 35 - 39.9) Obesity type: due to excess calories Serious obesity comorbidity presence: without serious comorbidity Qualified Code(s): E66.09 - Other obesity due to excess calories; Z68.39 - Body mass index [BMI] 39.0-39.9, adult Plan: Patient continues with a BMI above 30. Has had difficult time losing weight. He does understand he needs to be more physically active and adapt to better eating habits to reduce his weight. (3) Former smoker: Code(s): Z87.891 - Personal history of nicotine dependence Plan: Reports he has stopped smoking over the last 3 weeks and feels brought about this. He continues to try to abstain from smoking cigarettes. (4) Upper back pain: Code(s): M54.9 - Dorsalgia, unspecified Plan: Reports having upper back pain after he works out. He is interested in topical icy hot product to help relax his muscles. Orders: Orders Comprehensive [place]. Panel Fast Today Z13.1 - Encounter for screening for diabetes mellitus Complete Blood Count no Diff Today K21.9 - Gastro-esophageal reflux disease without esophagitis Coding Level of Care Code Est Pt Level 4 (50653) Diagnoses Schizoaffective disorder, bipolar type F25.0 Schizoaffective disorder type: bipolar Class 2 obesity due to excess calories without serious comorbidity with body mass index (BMI) of 39.0 to 39.9 in adult E66.09; Z68.39 Body mass index: BMI 39.0-39.9 Obesity classification: adult class 2 (BMI 35 - 39.9) Obesity type: due to excess calories Serious obesity comorbidity presence: without serious comorbidity Former smoker Z87.891 Upper back pain M54.9
[2023-09-30 10:05] VITALS: BP 128/82; PULSE 83; O2SAT 97; BMI 37.3
== END 2023-09-30 10:38 | disposition home or self-care (01) ==
PROVIDERS: PCP Physician Assistant; Visit Provider Physician Assistant
DX: M54.9 Dorsalgia, unspecified (principal); F25.0 Schizoaffective disorder, bipolar type; E66.09 Other obesity due to excess calories; Z68.39 Body mass index [BMI] 39.0-39.9, adult; Z87.891 Personal history of nicotine dependence
CPT/HCPCS: 99214

== ENCOUNTER 2023-10-13 13:20 | Emergency (ER) | payer OTHER, SELFPAY ==
[2023-10-13 13:37] VITALS: BP 118/44; PULSE 93; RESP 18; TEMP 36.7; O2SAT 95; BMI 37.3
[2023-10-13 13:43] VITALS: BP 118/44; PULSE 93; RESP 18; TEMP 36.7; O2SAT 95
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
[2023-10-13 13:54] LABS: Appearance Urine Clear; Color Urine Dark Yellow; Glucose Urine UA Negative (Negative); Leukocyte Esterase Urine Trace (Negative); Nitrite Urine Negative (Negative); PH 6.5 (5.0-9.0); Specific Gravity - Urine 1.025 (1.005-1.025); UMIC TRIGGER UACC YES; Urine Blood Negative (Negative); Urine Ketones Trace mg/dL (Negative); Urine Protein 30 (1+) mg/dL (Neg-Trace)
[2023-10-13 13:57] LABS: Bacteria Urine None Seen (None Seen); Hyaline Casts Urine 0-2 /LPF (0-2); RBC Urine 0-2 /HPF (0-2); Squamous Epithelial Cell Urine 0-2 /HPF (0-2); WBC Urine 0-5 /HPF (0-5)
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
[2023-10-13 14:08] LABS: Amphetamine Screen Urine POSITIVE (Not Detect); Barbiturates, Urine Not Detected (Not Detect); Benzodiazepines Screen Urine Not Detected (Not Detect); Buprenorphine Scr Not Detected (Not Detect); Cannabinoid Screen Urine Not Detected (Not Detect); Cocaine Screen Urine Not Detected (Not Detect); Fentanyl, urine Not Detected (Not Detect); Methadone Screen, Urine Not Detected (Not Detect); Opiate Screen Urine Not Detected (Not Detect); Oxycodone Screen Urine Not Detected (Not Detect); Phencyclidine Screen Urine Not Detected (Not Detect)
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
[2023-10-13 14:16] LABS: MANUAL DIFF FLAG NO
[2023-10-13 14:21] LABS: Basophils Absolute Auto 0.1 X10*3/uL (0.0-0.2); Basophils Percent Auto 0.6 % (0-2); Eosinophils Absolute Auto 0.1 X10*3/uL (0.0-0.4); Hematocrit 42.6 % (42.0-52.0); Hemoglobin 15.2 g/dl (14.0-18.0); Imm Gran Abs Auto 0.06 X10*3/uL (0.00-0.03); Imm Gran Pct Auto 0.8 % (0.0-0.4); Lymphocytes Percent Auto 24.5 % (20-40); Mean Corpuscular HGB Conc 35.7 g/dl (31.0-36.0); Mean Corpuscular Hemoglobin 32.1 pg (27.0-33.0); Mean Corpuscular Volume 90.1 fL (80.0-98.0); Mean Platelet Volume 9.1 fL (9.4-12.4); Monocytes Absolute Auto 0.8 X10*3/uL (0.1-1.2); Monocytes Percent Auto 10.5 % (2-11); Neutrophils Percent Auto 62.6 % (45-73); Platelet Count 232 X10*3/uL (160-400); Red Blood Count 4.73 X10*6/uL (4.60-5.80); Red Cell Distribution Width 11.8 % (11.0-16.0)
[2023-10-13 14:39] LABS: Alanine Aminotransferase 45 U/L (0-40); Alkaline Phosphatase 43 U/L (39-117); Anion Gap 11 (12-20); Aspartate Amino Transferase 28 U/L (5-37); Bilirubin Total 0.5 mg/dL (0.0-1.0); Blood Urea Nitrogen 11 mg/dL (9-16); Calcium 8.8 mg/dL (8.4-10.2); Carbon Dioxide 27 mmol/L (22-29); Chloride 108 mmol/L (96-108); Creatinine Clr Calc Pharmacy 150.3; Estimated Glomerular Filt Rate > 60; Ethanol < 10 mg/dL; Glucose Random 81 mg/dL (60-115); Potassium 4.6 mmol/L (3.3-5.1); Sodium 141 mmol/L (135-145); Total Protein 6.9 g/dL (6.5-8.0)
[2023-10-13] MEDS: Acetaminophen 325 MG TABLET 975 MG PO (15:07)
[2023-10-13] MEDS: Bacitracin Oint 0.9 GM PACKET 1 APPL TOPICAL (15:08)
[2023-10-13] MEDS: LORazepam 1 MG TABLET PO (15:08)
[2023-10-13] MEDS: Diphth,Pertus(ACell),Tet Adult 0.5 ML SYRINGE IM (15:08)
[2023-10-13 18:02] VITALS: BP 118/44; PULSE 93; RESP 18; TEMP 36.7; O2SAT 95
--- NOTE | 2023-10-13 18:14 | PC.NURSE ---
PT ambulatory on discharge. No signs of distress. PT denies SI/HI and AH/VH. PT endorses readiness for discharge.
== END 2023-10-13 18:12 | disposition home or self-care (01) ==
PROVIDERS: Emergency Provider Emergency Medicine Emergency Medical Services
DX: F91.8 Other conduct disorders (principal); S00.211A Abrasion of right eyelid and periocular area, initial encounter; Y35.813A Legal intervention involving manhandling, suspect injured, initial encounter; Y93.89 Activity, other specified; Y92.414 Local residential or business street as the place of occurrence of the external cause; Y99.9 Unspecified external cause status; F25.9 Schizoaffective disorder, unspecified; F43.10 Post-traumatic stress disorder, unspecified; F90.9 Attention-deficit hyperactivity disorder, unspecified type; Z79.899 Other long term (current) drug therapy; Z23 Encounter for immunization
CPT/HCPCS: 36415; 80053; 80307; 81001; 85025; 90471; 90715; 99284; S9485

== ENCOUNTER 2023-10-24 09:06 | Outpatient (AMB) | payer OTHER, SELFPAY ==
[2023-10-24 09:11] VITALS: BP 110/68; PULSE 87; TEMP 36.7; O2SAT 95; BMI 38.4
--- NOTE | 2023-10-24 09:11 | MHC.OFFWIV ---
Intake Vital Signs 10/24/23 09:11 Height 5 ft 7 in Weight 245 lb BMI 38.4 BP 110/68 Blood Pressure Location Lt brachial Position Sitting Pulse 87 Pulse Source Pulse Oximeter Temp 98.0 F Temp Source Temporal Artery Scan Pulse Oximetry (%) 95 Oxygen Delivery Method Room Air Intake Visit Reasons: EP RT wrist injury Intake Note: pt is here today for rt wrist injury started 1 week ago Patient Tobacco Use Status: Current everyday Tobacco user Allergies acetaminophen [From Vicodin] Allergy (Verified 10/24/23 09:17) Stomach Upset almond Allergy (Verified 10/24/23 09:17) Unknown coconut Allergy (Verified 10/24/23 09:17) Unknown hydrocodone [From Vicodin] Allergy (Verified 10/24/23 09:17) Stomach Upset Do you need a note to return to daycare/school/sports/work: No HPI EP RT wrist injury HPI Details Patient is a 27-year-old male with a history of right metacarpal fractures, who comes to the walk-in clinic complaining of about a week of right hand and wrist pain after doing some repetitive football throwing. He reports that he was not throwing the football correctly, and immediately experienced pain afterwards. He has trialed ibuprofen, as well as icing intermittently and an attempt at wearing a wrist splint. Pain is worse with worse with use of the hand and wrist. No weakness, numbness or tingling PFSH Medical History Cervical spine pain Tinea corporis ADHD (attention deficit hyperactivity disorder) PTSD (post-traumatic stress disorder) Schizoaffective disorder Surgical History H/O hand surgery Social History Housing: Other Alcohol intake: never Patient Tobacco Use Status: Current everyday Tobacco user Tobacco use type: Cigarette and Smokeless Tobacco Cigarette Packs Per Day: 1 Cigarettes Per Day: 4 e-Cigarette/Vaping Use: Former Use Second Hand Smoke Exposure: Yes service: No Current occupational status: disabled Cognitive needs: No Hearing needs: No Vision needs: Yes (glasses) Review of Systems Const All systems reviewed & are unremarkable except as noted in HPI and below Physical Exam Vital Signs: Last Vital Signs Temp 98.0 F 10/24/23 09:11 Pulse 87 10/24/23 09:11 BP 110/68 10/24/23 09:11 Pulse Ox 95 10/24/23 09:11 Oxygen Delivery Method Room Air 10/24/23 09:11 BMI result Body Mass Index 38.4 Extrem Other: Right hand with some diffuse tenderness over metacarpals on the dorsal surface. There is also some tenderness to palpation on the ulnar aspect of the wrist. He has scarring from prior surgical procedures over the 4th and 5th metacarpals. Some mild edema diffusely. No gross deformity. Increased tenderness with ulnar deviation. Negative Miles's. Negative compression test. 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 Skin is pink warm and dry. Good capillary refill. The extremity is Neurovascularly intact distally Assessment & Plan Assessment & Plan (1) Sprain of hand, right: Code(s): S63.91XA - Sprain of unspecified part of right wrist and hand, initial encounter Qualifiers: Encounter type: initial encounter Qualified Code(s): S63.91XA - Sprain of unspecified part of right wrist and hand, initial encounter Plan: Patient is a 27-year-old male comes to the walk-in clinic with apparent sprain to the right hand after repetitive throwing of a football. He has history of fractures to the 4th and 5th metacarpals with surgical repair. Plain film x-ray today showed no acute osseous trauma, with surgical hardware intact. I think he has some tendinitis or strain to his prior hand injury that is aggravating him. He lives in a [facility] and is monitored with his medication, so I continued the ibuprofen that is already approved for him. Should also continue to ice and elevate the hand as able. We put him in a universal wrist immobilizer, which also will help to immobilize his metacarpals. I told him to wear this for the next week or 2 to see if symptoms improve. If not, he can follow up with an orthopedist as needed. Orders: Orders XR hand wrist RT Today S66.911A - Strain of unspecified muscle, fascia and tendon at wrist and hand level, right hand, initial encounter Medications: Refilled ibuprofen 600 mg PO TID 10 days PRN 30 tabs 0RF pain M54.2 - Cervicalgia Coding Level of Care Code Est Pt Level 3 (50453) Diagnoses Sprain of right hand, initial encounter S63.91XA Encounter type: initial encounter
== END 2023-10-24 10:16 | disposition home or self-care (01) ==
PROVIDERS: Visit Provider Physician Assistant Medical
DX: S63.91XA Sprain of unspecified part of right wrist and hand, initial encounter (principal)
CPT/HCPCS: 99051; 99213

== ENCOUNTER 2023-10-24 09:44 | Outpatient (REF) | payer OTHER, SELFPAY ==
--- NOTE | ~2023-10-24 | XR_ITS ---
EXAMINATION: XR HAND/WRIST, RIGHT CLINICAL INFORMATION: Right wrist pain COMPARISON: Right hand x-rays of 09/01/2021 TECHNIQUE: PA, lateral, and oblique views of the right hand and wrist. FINDINGS: Plate and screws surgical hardware in the fourth and fifth metacarpals is stable in appearance. There is no evidence of hardware fracture or loosening. No evidence of acute fracture or dislocation. Normal osseous mineralization. No focal erosion. Joint spaces are unremarkable. Small sclerotic density in the distal radial metaphysis is a stable finding representing small bone island. No soft tissue calcifications are seen. No evidence of soft tissue air. XR/XR hand wrist RT IMPRESSION: No acute osseous abnormality. Surgical hardware in the right hand fourth and fifth metacarpal is stable in appearance without evidence of hardware loosening or hardware fracture. No focal erosion.
== END 2023-10-24 09:45 | disposition home or self-care (01) ==
LOC: HO.HMGCX 09:44
PROVIDERS: Visit Provider Physician Assistant Medical
DX: S66.911A Strain of unspecified muscle, fascia and tendon at wrist and hand level, right hand, initial encounter (principal)
CPT/HCPCS: 73110; 73130